=== PATIENT | female | born 1965 | race Caucasian/White ===

== ENCOUNTER 2016-05-02 09:16 | Emergency (ER) | payer MEDICARE, OTHER ==
--- NOTE | 2016-05-02 10:09 | ED ---
General Adult HPI - General Chief complaint: Anxiety Stated complaint: HTN,numbness in face Time Seen by Provider: 05/02/16 09:40 Source: patient, RN notes reviewed Mode of arrival: ambulatory Limitations: no limitations - History of Present Illness Initial comments: Patient is a 50-year-old female presents to the emergency room for evaluation of multiple complaints. Patient states he's been having with headaches, chest pain and facial numbness for the past week. Patient states she went to [facility] about a week ago they told her that it was because of her anxiety. Patient does admit she has a history of anxiety. Patient states symptoms are similar to anxiety, but the chest discomfort and headache is worrying her. Patient denies any weakness in her arms and legs. Patient states at times it feels like her heart is racing. Patient states she's having 7 out of 10 constant chest pain. Patient states she's also been having 7 out of 10 intermittent headaches throughout the week. Patient denies any history of headaches or migraines. Patient states she has been alternating Tylenol and Motrin with slight relief of symptoms. Patient also states that she has a history of high blood pressure. Patient states that she switched primary care physicians about a month ago and discontinued taking her blood pressure medication around that time as well. Patient states she was on 10 mg of lisinopril daily. Patient states she never got a refill on her blood pressure medication. Patient states that she has yet to follow-up with her new primary care provider. - Related Data Home Medications Medication Instructions Recorded Confirmed busPIRone HCL [Buspar] 30 mg PO BID 10/11/13 05/02/16 ARIPiprazole [Abilify] 15 mg PO HS 06/21/14 05/02/16 Venlafaxine HCl ER [Effexor XR] 150 mg PO DAILY 06/21/14 05/02/16 Mirtazapine 15 mg PO HS 11/06/14 05/02/16 Allergies Allergy/AdvReac Type Severity Reaction Status Date / Time benztropine mesylate Allergy Rash/Hives Verified 05/02/16 09:34 [From Art] Review of Systems ROS Statement: Those systems with pertinent positive or pertinent negative responses have been documented in the HPI. ROS Other: All systems not noted in ROS Statement are negative. Past Medical History Past Medical History: Asthma, Diabetes Mellitus, Hypertension History of Any Multi-Drug Resistant Organisms: None Reported Past Surgical History: Orthopedic Surgery Past Anesthesia/Blood Transfusion Reactions: No Reported Reaction Past Psychological History: Anxiety, Bipolar, Depression Smoking Status: Never smoker Past Alcohol Use History: None Reported Past Drug Use History: None Reported - Past Family History Mother Family Medical History: Diabetes Mellitus General Exam - General Exam Comments Initial Comments: Sitting in exam room in no acute distress. Limitations: no limitations General appearance: alert, in no apparent distress Head exam: Present: atraumatic, normocephalic, normal inspection Eye exam: Present: normal appearance, PERRL, EOMI Pupils: Present: normal accommodation ENT exam: Present: normal exam Neck exam: Present: normal inspection Respiratory exam: Present: normal lung sounds bilaterally. Absent: respiratory distress Cardiovascular Exam: Present: regular rate, normal rhythm, normal heart sounds Extremities exam: Present: normal inspection Back exam: Present: normal inspection Neurological exam: Present: alert, oriented X3, CN II-XII intact, normal gait Expanded Patient oriented to: Present: person, place, time Speech: Present: fluid speech Cranial nerves: EOM's Intact: Normal, Facial Sensation: Normal Sensory exam: Upper Extremity Light Touch: Normal, Lower Extremity Light Touch: Normal Motor strength exam: RUE: 5, LUE: 5, RLE: 5, LLE: 5 Eye Response: (4) open spontaneously Motor Response: (6) obeys commands Verbal Response: (5) oriented Psychiatric exam: Present: normal affect, anxious Skin exam: Present: warm, dry, intact, normal color. Absent: rash Course Vital Signs 05/02/16 05/02/16 05/02/16 09:23 09:57 11:54 Temperature 98.2 F 97.9 F Pulse Rate 84 89 Respiratory 18 16 Rate Blood Pressure 183/106 164/96 162/94 O2 Sat by Pulse 97 Oximetry 05/02/16 13:18 Temperature 98.1 F Pulse Rate 84 Respiratory 16 Rate Blood Pressure 164/100 O2 Sat by Pulse Oximetry EKG Findings - EKG Comments: EKG Findings:: Normal sinus rhythm with sinus arrhythmia, ventricular rate 86 bpm, CT interval 148 ms, QRS duration 84 ms, QT/QTC 352/421 ms Medical Decision Making - Medical Decision Making Patient is a 50-year-old female presents to the emergency room for multiple complaints. Chest x-ray shows no acute findings. Blood work showed no acute findings. Cardiac enzymes within normal limits. Patient also complaining continuing headache. Brain CT shows no acute findings. Patient was given Ativan with significant improvement of symptoms. Patient states that she will follow up with a primary care provider this week regarding anxiety and blood pressure. Patient states she understands everything that was discussed with her. Return parameters discussed. Case discussed with Dr. Borden. - Lab Data Result diagrams: 05/02/16 10:25 05/02/16 10:25 Lab Results 05/02/16 05/02/16 05/02/16 Range/Units 10:25 10:25 10:25 WBC 6.3 (3.8-10.6) k/uL RBC 4.14 (3.80-5.40) m/uL Hgb 12.8 (11.4-16.0) gm/dL Hct 38.1 (34.0-46.0) % MCV 92.1 (80.0-100.0) fL MCH 30.9 (25.0-35.0) pg MCHC 33.5 (31.0-37.0) g/dL RDW 13.5 (11.5-15.5) % Plt Count 342 (150-450) k/uL Neutrophils % 59 % Lymphocytes % 30 % Monocytes % 5 % Eosinophils % 3 % Basophils % 0 % Neutrophils # 3.8 (1.3-7.7) k/uL Lymphocytes # 1.9 (1.0-4.8) k/uL Monocytes # 0.3 (0-1.0) k/uL Eosinophils # 0.2 (0-0.7) k/uL Basophils # 0.0 (0-0.2) k/uL PT (9.0-12.0) sec INR (<1.1) APTT (22.0-30.0) sec D-Dimer (<0.60) mg/L FEU Sodium 142 (137-145) mmol/L Potassium 3.8 (3.5-5.1) mmol/L Chloride 105 (98-107) mmol/L Carbon Dioxide 27 (22-30) mmol/L Anion Gap 10 mmol/L BUN 10 (7-17) mg/dL Creatinine 0.72 (0.52-1.04) mg/dL Est GFR (MDRD) Af Amer >60 (>60 ml/min/1.73 sqM) Est GFR (MDRD) Non-Af >60 (>60 ml/min/1.73 sqM) Glucose 84 (74-99) mg/dL Calcium 9.1 (8.4-10.2) mg/dL Magnesium 1.8 (1.6-2.3) mg/dL Total Bilirubin 0.4 (0.2-1.3) mg/dL AST 26 (14-36) U/L ALT 48 (9-52) U/L Alkaline Phosphatase 92 (38-126) U/L Total Creatine Kinase 87 (30-135) U/L CK-MB (CK-2) 0.7 (0.0-2.4) ng/mL CK-MB (CK-2) Rel Index 0.8 Troponin I <0.012 (0.000-0.034) ng/mL Total Protein 7.2 (6.3-8.2) g/dL Albumin 4.2 (3.5-5.0) g/dL 05/02/16 Range/Units 10:25 WBC (3.8-10.6) k/uL RBC (3.80-5.40) m/uL Hgb (11.4-16.0) gm/dL Hct (34.0-46.0) % MCV (80.0-100.0) fL MCH (25.0-35.0) pg MCHC (31.0-37.0) g/dL RDW (11.5-15.5) % Plt Count (150-450) k/uL Neutrophils % % Lymphocytes % % Monocytes % % Eosinophils % % Basophils % % Neutrophils # (1.3-7.7) k/uL Lymphocytes # (1.0-4.8) k/uL Monocytes # (0-1.0) k/uL Eosinophils # (0-0.7) k/uL Basophils # (0-0.2) k/uL PT 9.7 (9.0-12.0) sec INR 0.9 (<1.1) APTT 24.0 (22.0-30.0) sec D-Dimer 0.26 (<0.60) mg/L FEU Sodium (137-145) mmol/L Potassium (3.5-5.1) mmol/L Chloride (98-107) mmol/L Carbon Dioxide (22-30) mmol/L Anion Gap mmol/L BUN (7-17) mg/dL Creatinine (0.52-1.04) mg/dL Est GFR (MDRD) Af Amer (>60 ml/min/1.73 sqM) Est GFR (MDRD) Non-Af (>60 ml/min/1.73 sqM) Glucose (74-99) mg/dL Calcium (8.4-10.2) mg/dL Magnesium (1.6-2.3) mg/dL Total Bilirubin (0.2-1.3) mg/dL AST (14-36) U/L ALT (9-52) U/L Alkaline Phosphatase (38-126) U/L Total Creatine Kinase (30-135) U/L CK-MB (CK-2) (0.0-2.4) ng/mL CK-MB (CK-2) Rel Index Troponin I (0.000-0.034) ng/mL Total Protein (6.3-8.2) g/dL Albumin (3.5-5.0) g/dL Disposition Clinical Impression: Anxiety, Headache Disposition: HOME SELF-CARE Condition: Good Instructions: Generalized Anxiety Disorder (ED), Acute Headache (ED) Additional Instructions: Please follow up with primary care provider in 24-48 hours. If any new symptom arises, symptoms worsen or fever develops, return to ER as soon as possible. Referrals: Tia Feliz MD [Primary Care Provider] - 1-2 days Time of Disposition: 13:06
[2016-05-02 10:53] LABS: INR 0.9 (<1.1); Prothrombin Time 9.7 sec (9.0-12.0)
[2016-05-02 10:57] LABS: ALT 48 U/L (9-52); AST 26 U/L (14-36); Alkaline Phosphatase 92 U/L (38-126); Anion Gap 10 mmol/L; Blood Urea Nitrogen 10 mg/dL (7-17); Calcium 9.1 mg/dL (8.4-10.2); Carbon Dioxide 27 mmol/L (22-30); Chloride 105 mmol/L (98-107); Glucose 84 mg/dL (74-99); Magnesium 1.8 mg/dL (1.6-2.3); Non-African American GFR(MDRD) >60 (>60 ml/min/1.73 sqM); Potassium 3.8 mmol/L (3.5-5.1); Sodium 142 mmol/L (137-145); Total Bilirubin 0.4 mg/dL (0.2-1.3); Total Protein 7.2 g/dL (6.3-8.2)
--- NOTE | 2016-05-02 11:01 | XR ---
EXAMINATION TYPE: XR chest 2V DATE OF EXAM: 05/02/2016 10:55 AM COMPARISON: 05/18/2015 INDICATION: Chest pain TECHNIQUE: Frontal and lateral views of the chest are obtained. FINDINGS: The heart size is normal. The pulmonary vasculature is normal. The lungs are clear. IMPRESSION: 1. No acute pulmonary process.
[2016-05-02 11:06] LABS: Creatine Kinase 87 U/L (30-135)
[2016-05-02 11:14] LABS: Basophils % (A) 0 %; CH 31.3; CHCM 34.1; Eosinophils # (A) 0.2 k/uL (0-0.7); Eosinophils % (A) 3 %; HCT 38.1 % (34.0-46.0); HDW 2.74; HGB 12.8 gm/dL (11.4-16.0); Luc # (Auto) 0.11; Luc % (Auto) 2; Lymphocytes # (A) 1.9 k/uL (1.0-4.8); Lymphocytes % (A) 30 %; MCH 30.9 pg (25.0-35.0); MCHC 33.5 g/dL (31.0-37.0); MCV 92.1 fL (80.0-100.0); Mean Platelet Volume 6.2; Monocytes # (A) 0.3 k/uL (0-1.0); Monocytes % (A) 5 %; Neutrophils # (A) 3.8 k/uL (1.3-7.7); Neutrophils % (A) 59 %; RBC 4.14 m/uL (3.80-5.40); RDW 13.5 % (11.5-15.5); WBC 6.3 k/uL (3.8-10.6); WBC (Perox) 6.58
[2016-05-02 11:18] LABS: Creatine Kinase MB 0.7 ng/mL (0.0-2.4); Troponin I <0.012 ng/mL (0.000-0.034)
[2016-05-02 11:55] VITALS: RESP 16
--- NOTE | 2016-05-02 12:20 | CT ---
EXAMINATION TYPE: CT brain wo con DATE OF EXAM: 05/02/2016 12:16 PM COMPARISON: 06/21/2014 HISTORY: Generalized facial numbness CT DLP: 1012.[address] of the brain was performed. The ventricles, basal cisterns and sulci overlying the cerebral convexities demonstrate mild enlargem ent. There is no evidence for intracranial hemorrhage or sulcal effacement. There is decreased attenuation about the periventricular white matter and deep white matter of both c erebral hemispheres, compatible with chronic small vessel ischemia. Differential diagnosis does inclu de demyelination. No mass effects are seen.No midline shift. Osseous calvarium is intact. If symptoms persist consider MRI. IMPRESSION: 1. Age related atrophic and chronic small vessel ischemic change without acute intracranial process s een at this time.
[2016-05-02] MEDS ORDERED: LORazepam 2 MG/ML SYRINGE IV STA (12:26)
[2016-05-02 13:19] VITALS: BP 164/100; PULSE 84; TEMP 98.1
== END 2016-05-02 13:41 | disposition home or self-care (01) ==
LOC: EC 09:16
DX: F41.9 Anxiety disorder, unspecified (principal); R51 Headache; R07.9 Chest pain, unspecified; Z79.899 Other long term (current) drug therapy; Z88.8 Allergy status to other drugs, medicaments and biological substances; F31.9 Bipolar disorder, unspecified
CPT/HCPCS: 36415; 93005; 85379; 80053; 82550; 82553; 83735; 84484; 85025; 85610; 85730; 71020; 70450; 96374; 99284; J2060

== ENCOUNTER → 2017-07-24 | Outpatient (CLI) | payer MEDICARE, OTHER ==
--- NOTE | 2017-07-24 10:17 | CT ---
EXAMINATION TYPE: CT chest w con DATE OF EXAM: 07/24/2017 COMPARISON: CTA chest July 23, 2011. HISTORY: Patient complains of pneumonia per patient and order. CT DLP: 892 mGycm. Automated Exposure Control for Dose Reduction was Utilized. TECHNIQUE: CT scan of the thorax is performed following with IV Contrast, patient injected with 100 mL of Isovue 300. FINDINGS: LUNGS: The lungs are grossly clear, there is no suspicious consolidation or focal groundglass opacity . Small amount of linear scarring or atelectasis in the bases near diaphragm on coronal images. No s uspicious nodule or mass is present. There is no pleural effusion or pneumothorax seen. The tracheob ronchial tree is patent. MEDIASTINUM: There are no greater than 1 cm hilar or mediastinal lymph nodes. No cardiomegaly or pe ricardial effusion is seen. OTHER: Liver is diffusely low dense consistent with fatty infiltration. A few tiny subcentimeter sple nules are seen along anterior aspect of the spleen. There is moderate multilevel spurring in the thor acic spine. IMPRESSION: No suspicious acute pulmonary process is evident.
== END | disposition home or self-care (01) ==
LOC: RADCTMAIN 08:26
PROVIDERS: ATTEND Internal Medicine Critical Care Medicine
DX: J18.9 Pneumonia, unspecified organism (principal)
CPT/HCPCS: 82565; 84520; 71260; 36415; Q9967

== ENCOUNTER → 2020-08-06 | Outpatient (CLI) | payer MEDICARE, OTHER ==
--- NOTE | 2020-08-07 14:59 | MM ---
Reason for exam: screening (asymptomatic). Last mammogram was performed 12 years and 8 months ago. History: Patient is postmenopausal and is nulliparous. Family history of breast cancer in aunt. Physical Findings: A clinical breast exam by your physician is recommended on an annual basis and results should be correlated with mammographic findings. MG 3D Screening Mammo W/Cad Bilateral CC, MLO, and XCCL view(s) were taken. Prior study comparison: December 04, 2019, mammogram, performed at [facility]. May 16, 2019, mammogram, performed at [facility]. There are scattered fibroglandular densities. Benign appearing bilateral calcifications. No significant changes when compared with prior studies. ASSESSMENT: Benign, BI-RAD 2 RECOMMENDATION: Routine screening mammogram of both breasts in 1 year.
== END | disposition home or self-care (01) ==
LOC: RADMAMWWP 08:46
PROVIDERS: ATTEND Internal Medicine
DX: Z12.31 Encounter for screening mammogram for malignant neoplasm of breast (principal); Z78.0 Asymptomatic menopausal state; Z80.3 Family history of malignant neoplasm of breast
CPT/HCPCS: 77063; 77067

== ENCOUNTER → 2020-08-18 | Outpatient (CLI) | payer MEDICARE, OTHER ==
--- NOTE | 2020-08-18 11:02 | US ---
EXAMINATION TYPE: US venous doppler duplex LE RT DATE OF EXAM: 08/18/2020 10:58 AM COMPARISON: NONE CLINICAL HISTORY: M79.661 pain in right lower leg R22.41 Rt lower li. Pt states right leg pain/ no kn own prior DVT SIDE PERFORMED: Right TECHNIQUE: The lower extremity deep venous system is examined utilizing real time linear array sonog meenakshi with graded compression, doppler sonography and color-flow sonography. VESSELS IMAGED: Common Femoral Vein Deep Femoral Vein Greater Saphenous Vein * Femoral Vein Popliteal Vein Small Saphenous Vein * Proximal Calf Veins (* superficial vessels) Right Leg: Negative for DVT Results called to Dr's office at time of exam IMPRESSION: Grayscale, color doppler, spectral doppler imaging performed of the deep veins of the lo wer extremities. There is normal flow, compressibility, vascular waveforms.
== END | disposition home or self-care (01) ==
LOC: RADUSWWP 10:38
PROVIDERS: ATTEND Internal Medicine
DX: M79.661 Pain in right lower leg (principal); R22.41 Localized swelling, mass and lump, right lower limb

== ENCOUNTER → 2022-10-04 | Outpatient (CLI) | payer MEDICARE, OTHER ==
--- NOTE | 2022-10-04 12:28 | FL ---
EXAMINATION TYPE: FL UGI w small bowel DATE OF EXAM: 10/04/2022 11:56 AM CLINICAL INDICATION:Female, 57 years old with history of R10.9 UNSPECIFIED ABDOMINAL PAIN; COMPARISON: None TECHNIQUE: The procedure was explained and patient history elicited. All patient questions were ans wered prior to start of procedure. A telecine operator radiograph of the abdomen was also reviewed. Multiple flu oroscopic spot images of the esophagus, stomach and duodenum were obtained following ingestion of liq uid barium and EZ-gas crystals. After the completion of the upper gastrointestinal examination, a de tailed small bowel examination was performed. The patient was asked to ingest additional liquid sarah um and incremental frontal abdominal radiographs were then taken until contrast was visualized in the cecum. Fluoroscopic time: 1.4 min Fluoroscopic images: None Radiographs taken: 238 DAP: 11.13 mGym2 FINDINGS: Upper GI examination: The telecine operator abdominal radiograph demonstrates a normal bowel gas pattern without dilated loops of small or large bowel. There is no evidence for organomegaly or pneumoperitoneum. No abnormal calcificati ons. The visualized osseous structures are intact. The esophagus appears unremarkable without evidence of focal stricture, ulceration or abnormal outpou tami. No hiatal hernia was visualized. Esophageal dysmotility noted with tertiary contractions. No evidence of gastroesophageal reflux was seen. The stomach and duodenum demonstrate a normal course a nd contour. There is no evidence of focal gastric or duodenal ulceration, stricture, or abnormal out pouching. Small bowel mucosal folds are felt to be within normal limits. Detailed small bowel examination: Contrast is seen extending from the duodenojejunal junction into the cecum after 75 minutes , which i s within the expected time period. The small bowel follows normal distribution and contour without a ny evidence of extraluminal or intraluminal irregularity. There is no displacement of bowel loops or extraluminal extravasation of contrast material. IMPRESSION: 1. Esophageal dysmotility and otherwise on upper gastrointestinal examination 2. Normal detailed small bowel examination.
== END | disposition home or self-care (01) ==
LOC: RADFLMAIN 08:54
PROVIDERS: ATTEND Internal Medicine Gastroenterology
DX: K22.4 Dyskinesia of esophagus (principal)
CPT/HCPCS: 74240; 74248

== ENCOUNTER 2022-12-12 14:53 | Emergency (ER) | payer MEDICARE, OTHER ==
[2022-12-12 15:02] VITALS: RESP 22
--- NOTE | 2022-12-12 15:42 | XR ---
EXAMINATION TYPE: XR chest 2V DATE OF EXAM: 12/12/2022 3:36 PM COMPARISON: Chest radiographs from 07/03/2017 TECHNIQUE: XR chest 2V Frontal and lateral views of the chest. CLINICAL INDICATION:Female, 57 years old with history of Difficulty breathing ; FINDINGS: Lungs/Pleura: There is no evidence of pleural effusion, focal consolidation, or pneumothorax. Pulmonary vascularity: Unremarkable. Heart/mediastinum: Cardiomediastinal silhouette is unremarkable. Musculoskeletal: No acute osseous pathology. IMPRESSION: No acute cardiopulmonary disease/process.
--- NOTE | 2022-12-12 15:56 | ED ---
General Adult HPI - General Chief complaint: Upper Respiratory Infection Stated complaint: SOB Time Seen by Provider: 12/12/22 15:05 Source: patient, RN notes reviewed, old records reviewed Mode of arrival: ambulatory Limitations: no limitations - History of Present Illness Initial comments: This is a 57-year-old female presents emergency department stating that she's had an upper after infection last couple days. Patient states she was here 2 days ago she had a cold test was negative. Patient states she continues to have a cough though no sputum production. Patient denies difficulty breathing shortness breath per patient denies any chest pain. Patient states she also has developed a little bit of a sore throat. Patient denies headache patient denies any numbness or weakness. Patient denies any lightheadedness. Patient denies back pain. Patient denies any abdominal pain. - Related Data Home Medications Medication Instructions Recorded Confirmed busPIRone HCL [Buspar] 30 mg PO BID 10/11/13 05/02/16 ARIPiprazole [Abilify] 15 mg PO HS 06/21/14 05/02/16 Venlafaxine HCl ER [Effexor XR] 150 mg PO DAILY 06/21/14 05/02/16 Mirtazapine 15 mg PO HS 11/06/14 05/02/16 Previous Rx's Medication Instructions Recorded Albuterol Inhaler [Ventolin Hfa 1 - 2 puff INHALATION Q6H PRN #1 12/10/22 Inhaler] each Allergies Allergy/AdvReac Type Severity Reaction Status Date / Time benztropine mesylate Allergy Rash/Hives Verified 12/12/22 15:02 [From Art] Review of Systems ROS Statement: Those systems with pertinent positive or pertinent negative responses have been documented in the HPI. ROS Other: All systems not noted in ROS Statement are negative. Past Medical History Past Medical History: Asthma, Diabetes Mellitus, Hypertension History of Any Multi-Drug Resistant Organisms: None Reported Past Surgical History: Orthopedic Surgery Past Anesthesia/Blood Transfusion Reactions: No Reported Reaction Past Psychological History: Anxiety, Bipolar, Depression Smoking Status: Never smoker Past Alcohol Use History: None Reported Past Drug Use History: None Reported - Past Family History Mother Family Medical History: Diabetes Mellitus General Exam - General Exam Comments Initial Comments: GENERAL: Patient is well-developed and well-nourished. Patient is nontoxic and well- hydrated and is in no acute distress. ENT: Neck is soft and supple. No significant lymphadenopathy is noted. Oropharynx is clear. Moist mucous membranes. Neck has full range of motion without eliciting any pain. EYES: The sclera were anicteric and conjunctiva were pink and moist. Extraocular movements were intact and pupils were equal round and reactive to light. Eyelids were unremarkable. PULMONARY: Unlabored respirations. Good breath sounds bilaterally. No audible rales rhonchi or wheezing was noted. CARDIOVASCULAR: There is a regular rate and rhythm without any murmurs gallops or rubs. ABDOMEN: Soft and nontender with normal bowel sounds. SKIN: Skin is clear with no lesions or rashes and otherwise unremarkable. NEUROLOGIC: Patient is alert and oriented x3. Cranial nerves II through XII are grossly intact. Motor and sensory are also intact. Normal speech, volume and content. Symmetrical smile. MUSCULOSKELETAL: Normal extremities with adequate strength and full range of motion. LYMPHATICS: No significant lymphadenopathy is noted PSYCHIATRIC: Normal psychiatric evaluation. Limitations: no limitations Course Vital Signs 12/12/22 14:59 Temperature 98.7 F Pulse Rate 117 H Respiratory 22 Rate Blood Pressure 126/77 O2 Sat by Pulse 99 Oximetry Medical Decision Making - Medical Decision Making Was pt. sent in by a medical professional or institution (, PA, BREWERY CELLAR WORKER, urgent care, hospital, or [facility]...) When possible be specific @ -No Did you speak to anyone other than the patient for history (EMS, parent, family, police, friend...)? What history was obtained from this source @ -No Did you review nursing and triage notes (agree or disagree)? Why? @ -I reviewed and agree with nursing and triage notes Were old charts reviewed (outside hosp., previous admission, EMS record, old EKG, old radiological studies, urgent care reports/EKG's, [facility] records)? Report findings @ -I reviewed prior charts in prior laboratory work Differential Diagnosis (chest pain, altered mental status, abdominal pain women, abdominal pain men, vaginal bleeding, weakness, fever, dyspnea, syncope, headache, dizziness, GI bleed, back pain, seizure, CVA, palpatations, mental health, musculoskeletal)? @ -Upper respiratory infection, influenza, COVID, RSV EKG interpreted by me (3pts min.). @ -As above X-rays interpreted by me (1pt min.). @ -She shows no acute abnormality CT interpreted by me (1pt min.). @ -None done U/S interpreted by me (1pt. min.). @ -None done What testing was considered but not performed or refused? (CT, X-rays, U/S, labs)? Why? @ -None What meds were considered but not given or refused? Why? @ -None Did you discuss the management of the patient with other professionals (owen sheppard i.e. , PA, BREWERY CELLAR WORKER, lab, RT, psych nurse, social services designee, chute puller, teacher, ground defence officer, caseworker)? Give summary @ -No Was smoking cessation discussed for >3mins.? @ -No Was critical care preformed (if so, how long)? @ -No Were there social determinants of health that impacted care today? How? (Homelessness, low income, unemployed, alcoholism, drug addiction, transportation, low edu. Level, literacy, decrease access to med. care, care home, rehab)? @ -No Was there de-escalation of care discussed even if they declined (Discuss DNR or withdrawal of care, Hospice)? DNR status @ -No What co-morbidities impacted this encounter? (DM, HTN, Smoking, COPD, CAD, Cancer, CVA, ARF, Chemo, Hep., AIDS, mental health diagnosis, sleep apnea, morbid obesity)? @ -None Was patient admitted / discharged? Hospital course, mention meds given and route, prescriptions, significant lab abnormalities, going to OR and other pertinent info. @ -Influenza COVID and RSV tests were all negative x-ray was negative patient's vitals were within normal limits. Undiagnosed new problem with uncertain prognosis? @ -No Drug Therapy requiring intensive monitoring for toxicity (Heparin, Nitro, Insulin, Cardizem)? @ -No Were any procedures done? @ -No Diagnosis/symptom? @ -Upper respiratory infection Acute, or Chronic, or Acute on Chronic? @ -Acute Uncomplicated (without systemic symptoms) or Complicated (systemic symptoms)? @ -Uncomplicated Side effects of treatment? @ -No Exacerbation, Progression, or Severe Exacerbation? @ -No Poses a threat to life or bodily function? How? (Chest pain, USA, VT, pneumonia, PE, COPD, DKA, ARF, appy, cholecystitis, CVA, Diverticulitis, Homicidal, Suicidal, threat to staff... and all critical care pts) @ -No - Lab Data Lab Results 12/12/22 Range/Units 15:34 Influenza Type A (PCR) Not Detected (Not Detectd) Influenza Type B (PCR) Not Detected (Not Detectd) RSV (PCR) Not Detected (Not Detectd) SARS-CoV-2 (PCR) Not Detected (Not Detectd) Disposition Clinical Impression: Upper respiratory tract infection Disposition: HOME SELF-CARE Condition: Good Instructions (If sedation given, give patient instructions): Upper Respiratory Infection (ED) Is patient prescribed a controlled substance at d/c from ED?: No Referrals: Tia Feliz MD [Primary Care Provider] - 1-2 days Time of Disposition: 15:55
[2022-12-12 17:17] VITALS: BP 122/70; PULSE 96; TEMP 98.6
== END 2022-12-12 17:16 | disposition home or self-care (01) ==
LOC: EC 14:53
DX: J06.9 Acute upper respiratory infection, unspecified (principal); E11.9 Type 2 diabetes mellitus without complications; I10 Essential (primary) hypertension; J45.909 Unspecified asthma, uncomplicated; F31.9 Bipolar disorder, unspecified; F41.9 Anxiety disorder, unspecified; Z20.822 Contact with and (suspected) exposure to COVID-19; Z79.899 Other long term (current) drug therapy; Z88.8 Allergy status to other drugs, medicaments and biological substances
CPT/HCPCS: 71046; 87636; 99285

== ENCOUNTER 2023-04-04 13:12 | Emergency (ER) | payer MEDICARE, OTHER ==
--- NOTE | 2023-04-04 13:21 | ED ---
Lower Extremity Injury HPI - General Source: patient, RN notes reviewed <Helen Bustamante - Last Filed: 04/04/23 13:21> - General Source: patient, RN notes reviewed Limitations: no limitations <Isra Quiñones - Last Filed: 04/04/23 18:14> - General Stated Complaint: left knee injury Time Seen by Provider: 04/04/23 13:21 - History of Present Illness Initial Comments: Patient is a 57-year-old female presented ER with chief complaint of left knee pain. Patient denies any known trauma. Patient states it is difficult to walk. Patient has no other complaints at this time. (Helen Bustamante) Patient is a pleasant 57-year-old female presenting to the emergency department with concerns with left knee pain. Onset of symptoms was around 3 days ago. Patient is able to ambulate. Patient does have increased discomfort with ambulating as well as doing stairs. No known trauma. No history of chronic knee problems. Discomfort is left anterior knee. No swelling. No fever. No rash. (Isra Quiñones) - Related Data Home Medications Medication Instructions Recorded Confirmed busPIRone HCL [Buspar] 30 mg PO BID 10/11/13 05/02/16 ARIPiprazole [Abilify] 15 mg PO HS 06/21/14 05/02/16 Venlafaxine HCl ER [Effexor XR] 150 mg PO DAILY 06/21/14 05/02/16 Mirtazapine 15 mg PO HS 11/06/14 05/02/16 Previous Rx's Medication Instructions Recorded Albuterol Inhaler [Ventolin Hfa 1 - 2 puff INHALATION Q6H PRN #1 12/10/22 Inhaler] each Ibuprofen [Motrin] 600 mg PO Q6HR PRN #20 tab 04/04/23 Allergies Allergy/AdvReac Type Severity Reaction Status Date / Time benztropine mesylate Allergy Rash/Hives Verified 04/04/23 14:24 [From Art] Review of Systems ROS Other: All systems not noted in ROS Statement are negative. <Helen Bustamante - Last Filed: 04/04/23 13:21> ROS Other: All systems not noted in ROS Statement are negative. Constitutional: Denies: fever Eyes: Denies: eye pain ENT: Denies: ear pain Respiratory: Denies: cough Cardiovascular: Denies: chest pain Endocrine: Denies: fatigue Musculoskeletal: Reports: as per HPI <Isra Quiñones - Last Filed: 04/04/23 18:14> ROS Statement: Those systems with pertinent positive or pertinent negative responses have been documented in the HPI. Past Medical History Past Medical History: Asthma, Diabetes Mellitus, Hypertension History of Any Multi-Drug Resistant Organisms: None Reported Past Surgical History: Orthopedic Surgery Past Anesthesia/Blood Transfusion Reactions: No Reported Reaction Past Psychological History: Anxiety, Bipolar, Depression Smoking Status: Never smoker Past Alcohol Use History: None Reported Past Drug Use History: None Reported - Past Family History Mother Family Medical History: Diabetes Mellitus <Helen Bustamante - Last Filed: 04/04/23 13:21> General Exam <Helen Bustamante - Last Filed: 04/04/23 13:21> Limitations: no limitations General appearance: alert, in no apparent distress Head exam: Present: normocephalic Eye exam: Present: normal appearance Neck exam: Present: normal inspection Respiratory exam: Present: normal lung sounds bilaterally Cardiovascular Exam: Present: regular rate, normal rhythm Expanded Peripheral pulses: 2+: Posterior Tibialis (L), Dorsalis Pedis (L) GI/Abdominal exam: Present: soft. Absent: tenderness Extremities exam: Present: tenderness (Left knee with mild tenderness, mostly in the region of the medial meniscus. No warmth.). Absent: calf tenderness Neurological exam: Present: alert Psychiatric exam: Present: normal affect, normal mood Skin exam: Present: normal color <Isra Quiñones - Last Filed: 04/04/23 18:14> - General Exam Comments Initial Comments: Visual Physical Exam Vital signs reviewed General: Well-appearing, nontoxic, no acute distress. Head: Normocephalic, atraumatic Eyes: PERRLA, EOMI ENT: Airway patent Chest: Nonlabored breathing Skin: No visual rash, normal skin tone Neuro: Alert and oriented 3 Musculoskeletal: No gross abnormalities (Helen Bustamante) Course Vital Signs 04/04/23 04/04/23 14:22 18:04 Temperature 98.1 F 97.1 F L Pulse Rate 95 87 Respiratory 18 13 Rate Blood Pressure 121/80 118/78 O2 Sat by Pulse 97 97 Oximetry Medical Decision Making <Helen Bustamante - Last Filed: 04/04/23 13:21> <Isra Quiñones - Last Filed: 04/04/23 18:14> - Medical Decision Making I performed the quick note portion of the exam. Electronically signed by Helen Bustamante PA-C (Helen Bustamante) Was pt. sent in by a medical professional or institution (RICKY Billingsley, TIRE AND TUBE REPAIRER, urgent care, hospital, or long-term...) When possible be specific @ -No Did you speak to anyone other than the patient for history (EMS, parent, family, police, friend...)? What history was obtained from this source @ -No Did you review nursing and triage notes (agree or disagree)? Why? @ -I reviewed and agree with nursing and triage notes Were old charts reviewed (outside hosp., previous admission, EMS record, old EKG, old radiological studies, urgent care reports/EKG's, long-term records)? Report findings @ -Previous right knee x-ray reviewed Differential Diagnosis (chest pain, altered mental status, abdominal pain women, abdominal pain men, vaginal bleeding, weakness, fever, dyspnea, syncope, headache, dizziness, GI bleed, back pain, seizure, CVA, palpatations, mental health, musculoskeletal)? @ -Differential Musculoskeletal Muscular strain, contusion, ligament sprain, fracture, arthritis, septic ar thritis, bursitis, cellulitis, muscle spasm, nerve compression, DVT, arterial occlusion, herpes zoster, electrolyte abnormality, tumor.... This is not meant to be in all inclusive list EKG interpreted by me (3pts min.). @ -As above X-rays interpreted by me (1pt min.). @ -Left knee x-ray does show some arthritic changes CT interpreted by me (1pt min.). @ -None done U/S interpreted by me (1pt. min.). @ -None done What testing was considered but not performed or refused? (CT, X-rays, U/S, labs)? Why? @ -None What meds were considered but not given or refused? Why? @ -None Did you discuss the management of the patient with other professionals (professionals i.e. RICKY Billingsley, TIRE AND TUBE REPAIRER, lab, RT, psych nurse, addiction social worker, lead caster helper, teacher, hazard mitigation officer, social work case manager)? Give summary @ -No Was smoking cessation discussed for >3mins.? @ -No Was critical care preformed (if so, how long)? @ -No Were there social determinants of health that impacted care today? How? (Homelessness, low income, unemployed, alcoholism, drug addiction, transportatio n, low edu. Level, literacy, decrease access to med. care, long-term, rehab)? @ -No Was there de-escalation of care discussed even if they declined (Discuss DNR or withdrawal of care, Hospice)? DNR status @ -No What co-morbidities impacted this encounter? (DM, HTN, Smoking, COPD, CAD, Cancer, CVA, ARF, Chemo, Hep., AIDS, mental health diagnosis, sleep apnea, morbid obesity)? @ -None Was patient admitted / discharged? Hospital course, mention meds given and route, prescriptions, significant lab abnormalities, going to OR and other pertinent info. @ -Patient is updated on results and need for follow-up. Patient will be given Toradol as well as ibuprofen 600 prescription and knee immobilizer. Recommended orthopedic follow-up. Undiagnosed new problem with uncertain prognosis? @ -No Drug Therapy requiring intensive monitoring for toxicity (Heparin, Nitro, Insulin, Cardizem)? @ -No Were any procedures done? @ -No Diagnosis/symptom? @ -Left knee arthralgia Acute, or Chronic, or Acute on Chronic? @ -Acute Uncomplicated (without systemic symptoms) or Complicated (systemic symptoms)? @ -default Side effects of treatment? @ -No Exacerbation, Progression, or Severe Exacerbation? @ -No Poses a threat to life or bodily function? How? (Chest pain, [place], [place], pneumonia, PE, COPD, DKA, ARF, appy, cholecystitis, CVA, Diverticulitis, Homicidal, Suicidal, threat to staff... and all critical care pts) @ -No (Isra Quiñones) Disposition <Helen Bustamante - Last Filed: 04/04/23 13:21> Is patient prescribed a controlled substance at d/c from ED?: No Time of Disposition: 18:13 <Isra Quiñones - Last Filed: 04/04/23 18:14> Clinical Impression: Arthralgia of left knee Disposition: HOME SELF-CARE Condition: Stable Instructions (If sedation given, give patient instructions): Arthralgia (ED), Knee Pain (ED) Additional Instructions: Please do follow-up with primary care physician and orthopedics in the next couple days for recheck. Return for increased pain, swelling, fever, redness, worsening or change in symptoms or any other concerns. Prescription has been sent to pharmacy. Prescriptions: Ibuprofen [Motrin] 600 mg PO Q6HR PRN #20 tab PRN Reason: Pain Referrals: Tia Feliz MD [Primary Care Provider] - 1-2 days Rhett Wisdom MD [STAFF PHYSICIAN] - 1-2 days
--- NOTE | 2023-04-04 15:03 | ED ---
Lower Extremity Injury HPI - General Stated Complaint: left knee injury Time Seen by Provider: 04/04/23 13:15 Source: patient, RN notes reviewed - Related Data Home Medications Medication Instructions Recorded Confirmed busPIRone HCL [Buspar] 30 mg PO BID 10/11/13 05/02/16 ARIPiprazole [Abilify] 15 mg PO HS 06/21/14 05/02/16 Venlafaxine HCl ER [Effexor XR] 150 mg PO DAILY 06/21/14 05/02/16 Mirtazapine 15 mg PO HS 11/06/14 05/02/16 Previous Rx's Medication Instructions Recorded Albuterol Inhaler [Ventolin Hfa 1 - 2 puff INHALATION Q6H PRN #1 12/10/22 Inhaler] each Allergies Allergy/AdvReac Type Severity Reaction Status Date / Time benztropine mesylate Allergy Rash/Hives Verified 12/12/22 15:02 [From Art] Review of Systems ROS Statement: Those systems with pertinent positive or pertinent negative responses have been documented in the HPI. ROS Other: All systems not noted in ROS Statement are negative. Past Medical History Past Medical History: Asthma, Diabetes Mellitus, Hypertension History of Any Multi-Drug Resistant Organisms: None Reported Past Surgical History: Orthopedic Surgery Past Anesthesia/Blood Transfusion Reactions: No Reported Reaction Past Psychological History: Anxiety, Bipolar, Depression Smoking Status: Never smoker Past Alcohol Use History: None Reported Past Drug Use History: None Reported - Past Family History Mother Family Medical History: Diabetes Mellitus Disposition Referrals: Tia Feliz MD [Primary Care Provider] - 1-2 days
--- NOTE | 2023-04-04 16:14 | XR ---
EXAMINATION TYPE: XR knee complete LT DATE OF EXAM: 04/04/2023 COMPARISON: None HISTORY: 57-year-old female left knee pain, no known injury TECHNIQUE: AP, oblique, and lateral views FINDINGS: There is degenerative spurring in the medial and patellofemoral compartments. There is a joint effusi on. Extensor mechanism appears intact. No acute fracture, subluxation or dislocation seen. IMPRESSION: Degenerative spurring especially within the medial and patellofemoral compartments. Trace knee joint effusion may be reactive. No acute osseous abnormality seen. If symptoms persist, consider MRI.
[2023-04-04] MEDS ORDERED: KETOROLAC 15 MG/ML 1 ML VIAL IM STA (18:08)
[2023-04-04 18:24] VITALS: BP 118/78; PULSE 87; RESP 13; TEMP 97.1
== END 2023-04-04 18:59 | disposition home or self-care (01) ==
LOC: EC 13:12
DX: M25.562 Pain in left knee (principal); E11.9 Type 2 diabetes mellitus without complications; I10 Essential (primary) hypertension; J45.909 Unspecified asthma, uncomplicated; F41.9 Anxiety disorder, unspecified; F31.9 Bipolar disorder, unspecified; Z88.8 Allergy status to other drugs, medicaments and biological substances; Z79.899 Other long term (current) drug therapy
CPT/HCPCS: 73562; 99284; 96372; J1885

== ENCOUNTER → 2023-04-17 | Outpatient (CLI) | payer MEDICARE, OTHER ==
--- NOTE | 2023-04-21 04:54 | MR ---
EXAMINATION TYPE: MR knee LT wo con DATE OF EXAM: 04/17/2023 COMPARISON: Left knee x-ray April 04, 2023 HISTORY: Left knee pain and swelling for a few weeks. TECHNIQUE: Multiplanar, multisequence images of the knee is performed without IV contrast. FINDINGS: MEDIAL MENISCUS: Horizontal increased signal posterior horn extends into central body but does not de finitively extend to articular surface. LATERAL MENISCUS: Increased signal posterior horn does not definitively extend to articular surface. CRUCIATE LIGAMENTS: The anterior and posterior cruciate ligaments are intact and unremarkable. COLLATERAL LIGAMENTS: The medial collateral ligament and lateral collateral ligament complex are inta ct. Fluid signal surrounds the medial collateral ligament. EXTENSOR MECHANISM: Visualized quadriceps and patellar tendons are intact. EFFUSION: No significant suprapatellar joint effusion. POPLITEAL CYST: Small leaking popliteal/you cyst. 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 BONE MARROW SIGNAL: Tiny foci of increased T2 signal along the anterior medial aspect of the medial t ibial plateau correspond to subtle sclerotic foci. This is nonspecific finding, osteopoikilosis is in differential. Heterogeneity consistent with red marrow reconversion is seen. OTHER: No additional significant abnormality is appreciated. IMPRESSION: 1. Fairly moderate tricompartment degenerative changes are present as detailed above. 2. Small leaking popliteal cyst. 3. Intrasubstance tear posterior horn into central body of the medial meniscus. 4. Intrasubstance tear posterior horn of lateral meniscus. 5. Mild MCL sprain injury.
== END | disposition home or self-care (01) ==
LOC: RADMRIMAIN 12:29
PROVIDERS: ATTEND Orthopaedic Surgery
DX: M17.12 Unilateral primary osteoarthritis, left knee (principal); M23.322 Other meniscus derangements, posterior horn of medial meniscus, left knee; M23.352 Other meniscus derangements, posterior horn of lateral meniscus, left knee; M23.632 Other spontaneous disruption of medial collateral ligament of left knee; M66.0 Rupture of popliteal cyst; M23.8X2 Other internal derangements of left knee

== ENCOUNTER 2023-08-25 13:47 | Emergency (ER) | payer MEDICARE, OTHER ==
[2023-08-25 14:22] VITALS: BP 114/98; RESP 16; TEMP 98.1
[2023-08-25 15:29] LABS: Basophils % (A) 1 %; Eosinophils # (A) 0.1 k/uL (0-0.7); Eosinophils % (A) 2 %; HCT 37.2 % (34.0-46.0); HGB 11.9 gm/dL (11.4-16.0); Lymphocytes # (A) 1.6 k/uL (1.0-4.8); Lymphocytes % (A) 30 %; MCH 29.7 pg (25.0-35.0); MCHC 31.9 g/dL (31.0-37.0); MCV 93.1 fL (80.0-100.0); Mean Platelet Volume 7.1; Monocytes # (A) 0.2 k/uL (0-1.0); Monocytes % (A) 5 %; Neutrophils # (A) 3.3 k/uL (1.3-7.7); Neutrophils % (A) 62 %; Platelet Count 329 k/uL (150-450); RDW 13.5 % (11.5-15.5); WBC 5.3 k/uL (3.8-10.6)
[2023-08-25] MEDS: LORazepam 1 MG TAB PO STA (15:29)
--- NOTE | 2023-08-25 15:30 | XR ---
EXAMINATION TYPE: XR chest 2V DATE OF EXAM: 08/25/2023 COMPARISON: 12/12/2022 HISTORY: 57-year-old female shortness of breath, difficulty breathing TECHNIQUE: PA and lateral views FINDINGS: Heart normal size. Aorta and pulmonary vasculature within normal limits. Hazy lower lung densities re lated to overlying soft tissue. No consolidation or pleural effusion. DISH in the mid thoracic spine. IMPRESSION: No acute cardiopulmonary process.
[2023-08-25 15:47] LABS: ALT 18 U/L (4-34); AST 23 U/L (14-36); African American GFR (CKD) >90 (>60 ml/min/1.73 sqM); Albumin 3.7 g/dL (3.5-5.0); Alkaline Phosphatase 102 U/L (38-126); Anion Gap 1 mmol/L; Blood Urea Nitrogen 19 mg/dL (7-17); Carbon Dioxide 29 mmol/L (22-30); Chloride 107 mmol/L (98-107); Glucose 88 mg/dL (74-99); Non-African American GFR(CKD) >90 (>60 ml/min/1.73 sqM); Potassium 4.1 mmol/L (3.5-5.1); Sodium 137 mmol/L (137-145); Total Bilirubin 0.4 mg/dL (0.2-1.3); Total Protein 6.3 g/dL (6.3-8.2)
--- NOTE | 2023-08-25 16:37 | ED ---
General Adult HPI - General Chief complaint: Anxiety Stated complaint: anxiety Time Seen by Provider: 08/25/23 14:15 Source: patient, EMS, RN notes reviewed, old records reviewed Mode of arrival: EMS Limitations: no limitations - History of Present Illness Initial comments: Patient is a 57-year-old female presents emergency department complaining of anxiety. States she has a history of anxiety. Is on an antianxiety medication but states it does not seem to be helping. States it seems to be getting worse lately. Occasionally feels like her asthma is flaring up but then her anxiety kicks in and then they feed off of each other. Currently denies any acute complaints other than some mild anxiety. Denies any chest pain or shortness of breath. Denies abdominal pain, nausea, vomiting. No fevers or chills or sick contacts. Presents for further evaluation at this time. Has not seen her therapist in a while. Has been compliant with all other medications. - Related Data Home Medications Medication Instructions Recorded Confirmed busPIRone HCL [Buspar] 30 mg PO BID 10/11/13 05/02/16 ARIPiprazole [Abilify] 15 mg PO HS 06/21/14 05/02/16 Venlafaxine HCl ER [Effexor XR] 150 mg PO DAILY 06/21/14 05/02/16 Mirtazapine 15 mg PO HS 11/06/14 05/02/16 Previous Rx's Medication Instructions Recorded Albuterol Inhaler [Ventolin Hfa 1 - 2 puff INHALATION Q6H PRN #1 12/10/22 Inhaler] each Ibuprofen [Motrin] 600 mg PO Q6HR PRN #20 tab 04/04/23 ALPRAZolam [Xanax] 0.25 mg PO TID PRN 3 Days #9 tab 08/25/23 Allergies Allergy/AdvReac Type Severity Reaction Status Date / Time benztropine mesylate Allergy Rash/Hives Verified 08/25/23 14:02 [From Art] Review of Systems ROS Statement: Those systems with pertinent positive or pertinent negative responses have been documented in the HPI. Review of Systems: CONST: Denies fever EYES: Denies blurry vision ENT: Denies nasal congestion C/V: Denies Chest pain RESP: Denies shortness of breath GI: Denies abdominal pain : Denies dysuria SKIN: Denies rash. MSK: Denies joint pain. NEURO: Denies headache ROS Other: All systems not noted in ROS Statement are negative. Past Medical History Past Medical History: Asthma, Diabetes Mellitus, Hypertension History of Any Multi-Drug Resistant Organisms: None Reported Past Surgical History: Orthopedic Surgery Past Anesthesia/Blood Transfusion Reactions: No Reported Reaction Past Psychological History: Anxiety, Bipolar, Depression Smoking Status: Never smoker Past Alcohol Use History: None Reported Past Drug Use History: None Reported - Past Family History Mother Family Medical History: Diabetes Mellitus General Exam - General Exam Comments Initial Comments: General: Appears in no acute distress. HEAD: Normal with no signs of head trauma. EYES: PERRLA, EOMI, conjunctiva normal, no discharge. ENT: Hearing grossly intact, normal oropharynx. RESPIRATORY: Clear breath sounds bilaterally. No wheezes, rales, or rhonchi. C/V: Regular rate and rhythm. S1 and S2 auscultated, no edema, peripheral pulses 2+ and intact throughout ABD: Abd is soft, nontender, nondistended EXT: Normal range of motion, no obvious deformity SKIN: No rashes or lesions observed on exposed skin. NEURO: Alert and oriented x 4. Cranial nerves II-XII intact. No focal sensory or strength deficits. Limitations: no limitations Course Vital Signs 08/25/23 08/25/23 13:58 17:28 Temperature 98.1 F Pulse Rate 106 H 96 Respiratory 16 16 Rate Blood Pressure 114/98 114/98 O2 Sat by Pulse 97 95 Oximetry Medical Decision Making - Medical Decision Making Was pt. sent in by a medical professional or institution (, PA, ODD SHOE EXAMINER, urgent care, hospital, or senior living...) When possible be specific @ -No Did you speak to anyone other than the patient for history (EMS, parent, family, police, friend...)? What history was obtained from this source @ -No Did you review nursing and triage notes (agree or disagree)? Why? @ -I reviewed and agree with nursing and triage notes Were old charts reviewed (outside hosp., previous admission, EMS record, old EKG, old radiological studies, urgent care reports/EKG's, senior living records)? Report findings @ -No old charts were reviewed Differential Diagnosis (chest pain, altered mental status, abdominal pain women, abdominal pain men, vaginal bleeding, weakness, fever, dyspnea, syncope, headache, dizziness, GI bleed, back pain, seizure, CVA, palpatations, mental health, musculoskeletal)? @ -Anxiety, asthma, electrolyte abnormality. This list is not all inclusive. EKG interpreted by me (3pts min.). @ -As above X-rays interpreted by me (1pt min.). @ -Chest x-ray reveals no obvious acute cardiopulmonary process CT interpreted by me (1pt min.). @ -None done U/S interpreted by me (1pt. min.). @ -None done What testing was considered but not performed or refused? (CT, X-rays, U/S, labs)? Why? @ -None What meds were considered but not given or refused? Why? @ -None Did you discuss the management of the patient with other professionals (professionals i.e. , PA, ODD SHOE EXAMINER, lab, RT, psych nurse, social worker school, card clothier, teacher, sergeant of officers, home health care case manager)? Give summary @ -No Was smoking cessation discussed for >3mins.? @ -No Was critical care preformed (if so, how long)? @ -No Were there social determinants of health that impacted care today? How? (Homelessness, low income, unemployed, alcoholism, drug addiction, transportation, low edu. Level, literacy, decrease access to med. care, [facility], rehab)? @ -No Was there de-escalation of care discussed even if they declined (Discuss DNR or withdrawal of care, Hospice)? DNR status @ -No What co-morbidities impacted this encounter? (DM, HTN, Smoking, COPD, CAD, Cancer, CVA, ARF, Chemo, Hep., AIDS, mental health diagnosis, sleep apnea, morbid obesity)? @ -None Was patient admitted / discharged? Hospital course, mention meds given and route, prescriptions, significant lab abnormalities, going to OR and other pertinent info. @ -Patient presents with what appears to be anxiety. We will obtain basic lab s, screening EKG and chest x-ray. Has a history of asthma but does not appear to be an active asthma exacerbation. Presents for further evaluation at this time. Vital signs are within acceptable limits. Given a dose of Ativan. She was in agreement this plan. EKG shows no signs of acute ischemia. Patient's laboratory studies are all within acceptable limits. Chest x-ray unremarkable. On reevaluation, patient is feeling improved. I discussed with her that she needs follow-up with her therapist. She will be given a 3-day prescription for Xanax in the meantime. She was in agreement this plan. Strict return precautions discussed. I will provide the patient with a prescription for Xanax. I instructed the patient to follow up with their PCP in the next 1-3 days.. I explained that the patient should return to the emergency department if they experience any worsening symptoms. Strict return precautions were discussed with the patient. The patient expressed understanding of these instructions. I answered all questions that the patient had. The patient was discharged home in good condition with their prescriptions and follow up information. Undiagnosed new problem with uncertain prognosis? @ -No Drug Therapy requiring intensive monitoring for toxicity (Heparin, Nitro, Insuli n, Cardizem)? @ -No Were any procedures done? @ -No Diagnosis/symptom? @ -Anxiety, panic attack Acute, or Chronic, or Acute on Chronic? @ -Acute Uncomplicated (without systemic symptoms) or Complicated (systemic symptoms)? @ -Complicated Side effects of treatment? @ -No Exacerbation, Progression, or Severe Exacerbation? @ -No Poses a threat to life or bodily function? How? (Chest pain, [place], [place], pneumonia, PE, COPD, DKA, ARF, appy, cholecystitis, CVA, Diverticulitis, Homicidal, Suicidal, threat to staff... and all critical care pts) @ -Unlikely - Lab Data Result diagrams: 08/25/23 15:22 08/25/23 15:22 Lab Results 08/25/23 08/25/23 Range/Units 15:22 15:22 WBC 5.3 (3.8-10.6) k/uL RBC 4.00 (3.80-5.40) m/uL Hgb 11.9 (11.4-16.0) gm/dL Hct 37.2 (34.0-46.0) % MCV 93.1 (80.0-100.0) fL MCH 29.7 (25.0-35.0) pg MCHC 31.9 (31.0-37.0) g/dL RDW 13.5 (11.5-15.5) % Plt Count 329 (150-450) k/uL MPV 7.1 Neutrophils % 62 % Lymphocytes % 30 % Monocytes % 5 % Eosinophils % 2 % Basophils % 1 % Neutrophils # 3.3 (1.3-7.7) k/uL Lymphocytes # 1.6 (1.0-4.8) k/uL Monocytes # 0.2 (0-1.0) k/uL Eosinophils # 0.1 (0-0.7) k/uL Basophils # 0.0 (0-0.2) k/uL Sodium 137 (137-145) mmol/L Potassium 4.1 (3.5-5.1) mmol/L Chloride 107 (98-107) mmol/L Carbon Dioxide 29 (22-30) mmol/L Anion Gap 1 mmol/L BUN 19 H (7-17) mg/dL Creatinine 0.74 (0.52-1.04) mg/dL Est GFR (CKD-EPI)AfAm >90 (>60 ml/min/1.73 sqM) Est GFR (CKD-EPI)NonAf >90 (>60 ml/min/1.73 sqM) Glucose 88 (74-99) mg/dL Calcium 9.0 (8.4-10.2) mg/dL Total Bilirubin 0.4 (0.2-1.3) mg/dL AST 23 (14-36) U/L ALT 18 (4-34) U/L Alkaline Phosphatase 102 (38-126) U/L Total Protein 6.3 (6.3-8.2) g/dL Albumin 3.7 (3.5-5.0) g/dL - EKG Data -: EKG Interpreted by Me EKG Comments: 12-lead Electrocardiogram Interpretation Note EKG was reviewed and interpreted by myself. 12-lead ECG performed at 1535 is interpreted by me as revealing normal sinus rhythm at a rate of 78 beats per minute. [place] is normal. [place] interval is 162 ms, QRS durations 90 ms, QTc is 401 ms.. There were no ST or T wave abnormalities to suggest myocardial ischemia or injury. R wave progression across the precordium was delayed. By my interpretation this EKG is non-diagnostic for acute ischemia. Disposition Clinical Impression: Acute anxiety, Panic attack Disposition: HOME SELF-CARE Condition: Good Instructions (If sedation given, give patient instructions): Generalized Anxiety Disorder (ED) Prescriptions: ALPRAZolam [Xanax] 0.25 mg PO TID PRN 3 Days #9 tab PRN Reason: Anxiety Is patient prescribed a controlled substance at d/c from ED?: No Referrals: Tia Feliz MD [Primary Care Provider] - 1-2 days Time of Disposition: 16:35
[2023-08-25 17:44] VITALS: PULSE 96
== END 2023-08-25 17:31 | disposition home or self-care (01) ==
LOC: EC 13:47
DX: F41.0 Panic disorder [episodic paroxysmal anxiety] (principal); F41.9 Anxiety disorder, unspecified; Z88.8 Allergy status to other drugs, medicaments and biological substances
CPT/HCPCS: 36415; 71046; 80053; 85025; 93005; 99284

== ENCOUNTER 2023-09-09 17:37 | Emergency (ER) | payer MEDICARE, OTHER ==
--- NOTE | 2023-09-09 18:12 | XR ---
EXAMINATION TYPE: XR ankle complete RT DATE OF EXAM: 09/09/2023 COMPARISON: None HISTORY: Fall, pain TECHNIQUE: 3 view right ankle FINDINGS: No acute fracture or dislocation evident. There is prominent soft tissue swelling over the lateral malleolus. Plantar and Achilles tendon calcaneal heel spurs are present. Follow up exams can be performed 7-10 days from acute trauma for continued pain. IMPRESSION: 1. No acute osseous abnormality right ankle. 2. Soft tissue swelling right lateral malleolus
--- NOTE | 2023-09-09 18:45 | XR ---
EXAMINATION TYPE: XR foot complete RT DATE OF EXAM: 09/09/2023 COMPARISON: None HISTORY: Right foot pain and ankle pain following rolling one day prior TECHNIQUE: 3 view right foot FINDINGS: No acute fracture or dislocation is evident. Joint spaces appear preserved. Plantar and Ach illes tendon calcaneal spurs are present. Follow-up studies can be performed 7-10 days from acute trauma for continued pain. IMPRESSION: 1. No acute osseous abnormality right foot
--- NOTE | 2023-09-09 19:02 | ED ---
Fall HPI - General Chief Complaint: Fall Stated Complaint: right foot injury Time Seen by Provider: 09/09/23 18:21 Source: patient, RN notes reviewed Mode of arrival: ambulatory - History of Present Illness Initial Comments: 57-year-old female presenting to the ED with chief complaint of right ankle pain. Patient reports she was standing up on the chair "adjusting something" wh en she lost her balance causing her to twist her right ankle. Reports that she also hit her right side of her head on a air conditioning unit. Denies blood thinner baby aspirin use. Denies LOC. Denies headache at this time. At this time only notes pain of the right foot and ankle. No preceding chest pain shortness of breath or dizziness. No other complaints at this time. - Related Data Home Medications Medication Instructions Recorded Confirmed busPIRone HCL [Buspar] 30 mg PO BID 10/11/13 05/02/16 ARIPiprazole [Abilify] 15 mg PO HS 06/21/14 05/02/16 Venlafaxine HCl ER [Effexor XR] 150 mg PO DAILY 06/21/14 05/02/16 Mirtazapine 15 mg PO HS 11/06/14 05/02/16 Previous Rx's Medication Instructions Recorded Albuterol Inhaler [Ventolin Hfa 1 - 2 puff INHALATION Q6H PRN #1 12/10/22 Inhaler] each Ibuprofen [Motrin] 600 mg PO Q6HR PRN #20 tab 04/04/23 ALPRAZolam [Xanax] 0.25 mg PO TID PRN 3 Days #9 tab 08/25/23 Acetaminophen Tab [Tylenol] 650 mg PO Q6H PRN #30 tab 09/09/23 Ibuprofen [Motrin] 600 mg PO Q8HR PRN #30 tab 09/09/23 Allergies Allergy/AdvReac Type Severity Reaction Status Date / Time benztropine mesylate Allergy Rash/Hives Verified 09/09/23 17:47 [From Art] Review of Systems ROS Statement: Those systems with pertinent positive or pertinent negative responses have been documented in the HPI. ROS Other: All systems not noted in ROS Statement are negative. Past Medical History Past Medical History: Asthma, Diabetes Mellitus, Hypertension History of Any Multi-Drug Resistant Organisms: None Reported Past Surgical History: Orthopedic Surgery Past Anesthesia/Blood Transfusion Reactions: No Reported Reaction Past Psychological History: Anxiety, Bipolar, Depression Smoking Status: Never smoker Past Alcohol Use History: None Reported Past Drug Use History: None Reported - Past Family History Mother Family Medical History: Diabetes Mellitus General Exam Limitations: no limitations General appearance: alert, in no apparent distress Head exam: Present: other (No sun signs or raccoon's eyes.) Neck exam: Present: normal inspection Respiratory exam: Present: normal lung sounds bilaterally Cardiovascular Exam: Present: regular rate GI/Abdominal exam: Present: soft Extremities exam: Present: other (Tenderness to palpation over the right lateral malleolus and right medial foot at the first MTP joint with some ecchymosis.) Back exam: Present: other (No midline cervical spinal tenderness to palpation.) Neurological exam: Present: alert, oriented X3 Skin exam: Present: warm, dry Course Vital Signs 09/09/23 17:45 Temperature 98.1 F Pulse Rate 95 Respiratory 118 H Rate Blood Pressure 144/81 O2 Sat by Pulse 92 L Oximetry Medical Decision Making - Medical Decision Making Was pt. sent in by a medical professional or institution (RICKY Billingsley, ADMINISTRATIVE SUPPORT MANAGER, urgent care, hospital, or longterm...) When possible be specific @ -No Did you speak to anyone other than the patient for history (EMS, parent, family, police, friend...)? What history was obtained from this source @ -No Did you review nursing and triage notes (agree or disagree)? Why? @ -I reviewed and agree with nursing and triage notes Were old charts reviewed (outside hosp., previous admission, EMS record, old EKG, old radiological studies, urgent care reports/EKG's, longterm records)? Report findings @ -No old charts were reviewed Differential Diagnosis (chest pain, altered mental status, abdominal pain women, abdominal pain men, vaginal bleeding, weakness, fever, dyspnea, syncope, headache, dizziness, GI bleed, back pain, seizure, CVA, palpatations, mental health, musculoskeletal)? @ -Differential Musculoskeletal Muscular strain, contusion, ligament sprain, fracture, arthritis, septic arthri tis, bursitis, cellulitis, muscle spasm, nerve compression, DVT, arterial occlusion, herpes zoster, electrolyte abnormality, tumor.... This is not meant to be in all inclusive list EKG interpreted by me (3pts min.). @ -None X-rays interpreted by me (1pt min.). @ -X-rays of the foot and ankle interpreted me which revealed no evidence of acute finding. CT interpreted by me (1pt min.). @ -None done U/S interpreted by me (1pt. min.). @ -None done What testing was considered but not performed or refused? (CT, X-rays, U/S, labs)? Why? @ -None What meds were considered but not given or refused? Why? @ -None Did you discuss the management of the patient with other professionals (professionals i.e. , PA, ADMINISTRATIVE SUPPORT MANAGER, lab, RT, psych nurse, oncology social work, packing machine inspector, teacher, founder and chief technical officer, case supervisor)? Give summary @ -No Was smoking cessation discussed for >3mins.? @ -No Was critical care preformed (if so, how long)? @ -No Were there social determinants of health that impacted care today? How? (Homelessness, low income, unemployed, alcoholism, drug addiction, transportation, low edu. Level, literacy, decrease access to med. care, long term, rehab)? @ -No Was there de-escalation of care discussed even if they declined (Discuss DNR or withdrawal of care, Hospice)? DNR status @ -No What co-morbidities impacted this encounter? (DM, HTN, Smoking, COPD, CAD, Cancer, CVA, ARF, Chemo, Hep., AIDS, mental health diagnosis, sleep apnea, morbid obesity)? @ -None Was patient admitted / discharged? Hospital course, mention meds given and route, prescriptions, significant lab abnormalities, going to OR and other pertinent info. @ -Discharge 57-year-old female presented to the ED with complaints of right foot and ankle pain after twisting it. No other injuries at this time. Imaging at this time reviewed which revealed no evidence of acute finding. Foot and ankle was wrapped and discharged home in stable condition with instructions to follow-up with her primary care provider. Discussed return precautions with patient who verbalized agreement. Undiagnosed new problem with uncertain prognosis? @ -No Drug Therapy requiring intensive monitoring for toxicity (Heparin, Nitro, Insulin, Cardizem)? @ -No Were any procedures done? @ -No Diagnosis/symptom? @ -Right foot/ankle pain Acute, or Chronic, or Acute on Chronic? @ -Acute Uncomplicated (without systemic symptoms) or Complicated (systemic symptoms)? @ -Uncomplicated Side effects of treatment? @ -No Exacerbation, Progression, or Severe Exacerbation? @ -No Poses a threat to life or bodily function? How? (Chest pain, [place], [place], pneumonia, PE, COPD, DKA, ARF, appy, cholecystitis, CVA, Diverticulitis, Homicidal, Suicidal, threat to staff... and all critical care pts) @ -No Disposition Clinical Impression: Ankle sprain Disposition: HOME SELF-CARE Condition: Good Instructions (If sedation given, give patient instructions): Ankle Sprain (ED), Foot Sprain (ED) Additional Instructions: Please return to the Emergency Department if symptoms worsen or any other concerns. Please follow-up with your primary care provider. Use [id number] medications as needed for pain. Prescriptions: Ibuprofen [Motrin] 600 mg PO Q8HR PRN #30 tab PRN Reason: Pain Acetaminophen Tab [Tylenol] 650 mg PO Q6H PRN #30 tab PRN Reason: Pain Is patient prescribed a controlled substance at d/c from ED?: No Referrals: Tia Feliz MD [Primary Care Provider] - 1-2 days Time of Disposition: 19:05
[2023-09-09] MEDS: ACET/COD 300 MG/30 MG STARTER PACK 6 TAB BTL PO STA (19:20)
[2023-09-09] MEDS: IBUPROFEN 600 MG STARTER PACK 4 TAB BTL PO STA (19:21)
[2023-09-09 19:48] VITALS: BP 110/69; PULSE 86; RESP 18; TEMP 98.2
== END 2023-09-09 19:27 | disposition home or self-care (01) ==
LOC: EC 17:37
DX: S93.401A Sprain of unspecified ligament of right ankle, initial encounter (principal); Z88.8 Allergy status to other drugs, medicaments and biological substances; X50.1XXA Overexertion from prolonged static or awkward postures, initial encounter
CPT/HCPCS: 99284

== ENCOUNTER 2023-09-17 15:54 | Emergency (ER) | payer MEDICARE, OTHER ==
[2023-09-17 16:00] VITALS: BP 146/77; PULSE 88; RESP 20; TEMP 98.5
--- NOTE | 2023-09-17 16:11 | ED ---
Lower Extremity Injury HPI - General Chief Complaint: Extremity Injury, Lower Stated Complaint: R Foot Pain Time Seen by Provider: 09/17/23 16:03 Source: patient Mode of arrival: ambulatory Limitations: no limitations - History of Present Illness Initial Comments: 57-year-old female presenting with chief complaint of right ankle pain. About a week ago the patient injured her right ankle and was diagnosed with an ankle sprain. She was seen by her orthopedist and was instructed to wear a boot and was provided with Ultram for pain. She states that the boot makes her ankle hurt more and the Ultram is not helping her pain. She states the Tylenol 3 or Superior tends to help more. She has had no new injury or trauma. No numbness or tingling. - Related Data Home Medications Medication Instructions Recorded Confirmed busPIRone HCL [Buspar] 30 mg PO BID 10/11/13 05/02/16 ARIPiprazole [Abilify] 15 mg PO HS 06/21/14 05/02/16 Venlafaxine HCl ER [Effexor XR] 150 mg PO DAILY 06/21/14 05/02/16 Mirtazapine 15 mg PO HS 11/06/14 05/02/16 Previous Rx's Medication Instructions Recorded Albuterol Inhaler [Ventolin Hfa 1 - 2 puff INHALATION Q6H PRN #1 12/10/22 Inhaler] each Ibuprofen [Motrin] 600 mg PO Q6HR PRN #20 tab 04/04/23 ALPRAZolam [Xanax] 0.25 mg PO TID PRN 3 Days #9 tab 08/25/23 Acetaminophen Tab [Tylenol] 650 mg PO Q6H PRN #30 tab 09/09/23 Ibuprofen [Motrin] 600 mg PO Q8HR PRN #30 tab 09/09/23 Allergies Allergy/AdvReac Type Severity Reaction Status Date / Time benztropine mesylate Allergy Rash/Hives Verified 09/17/23 16:00 [From Art] Review of Systems ROS Statement: Those systems with pertinent positive or pertinent negative responses have been documented in the HPI. ROS Other: All systems not noted in ROS Statement are negative. Past Medical History Past Medical History: Asthma, Diabetes Mellitus, Hypertension History of Any Multi-Drug Resistant Organisms: None Reported Past Surgical History: Orthopedic Surgery Past Anesthesia/Blood Transfusion Reactions: No Reported Reaction Past Psychological History: Anxiety, Bipolar, Depression Smoking Status: Never smoker Past Alcohol Use History: None Reported Past Drug Use History: None Reported - Past Family History Mother Family Medical History: Diabetes Mellitus General Exam Limitations: no limitations General appearance: alert, in no apparent distress Head exam: Present: atraumatic, normocephalic Eye exam: Present: normal appearance, EOMI Neck exam: Present: normal inspection. Absent: meningismus Respiratory exam: Absent: respiratory distress Cardiovascular Exam: Present: regular rate Right Ankle exam: Present: tenderness, swelling. Absent: full ROM Neurovascular tendon exam: Present: no vascular compromise Neurological exam: Present: alert, oriented X3 Psychiatric exam: Present: normal affect, normal mood Skin exam: Present: normal color Course Vital Signs 09/17/23 15:56 Temperature 98.5 F Pulse Rate 88 Respiratory 20 Rate Blood Pressure 146/77 O2 Sat by Pulse 98 Oximetry Medical Decision Making - Medical Decision Making Was pt. sent in by a medical professional or institution (, PA, ELECTRONIC TECHNICIAN, urgent care, hospital, or shelter...) When possible be specific @ -No Did you speak to anyone other than the patient for history (EMS, parent, family, police, friend...)? What history was obtained from this source @ -No Did you review nursing and triage notes (agree or disagree)? Why? @ -I reviewed and agree with nursing and triage notes Were old charts reviewed (outside hosp., previous admission, EMS record, old EKG, old radiological studies, urgent care reports/EKG's, shelter records)? Report findings @ -No old charts were reviewed Differential Diagnosis (chest pain, altered mental status, abdominal pain women, abdominal pain men, vaginal bleeding, weakness, fever, dyspnea, syncope, headache, dizziness, GI bleed, back pain, seizure, CVA, palpatations, mental health, musculoskeletal)? @ -Differential Musculoskeletal Muscular strain, contusion, ligament sprain, fracture, arthritis, septic arthritis, bursitis, cellulitis, muscle spasm, nerve compression, DVT, arterial occlusion, herpes zoster, electrolyte abnormality, tumor.... This is not meant to be in all inclusive list EKG interpreted by me (3pts min.). @ -As above X-rays interpreted by me (1pt min.). @ -None done CT interpreted by me (1pt min.). @ -None done U/S interpreted by me (1pt. min.). @ -None done What testing was considered but not performed or refused? (CT, X-rays, U/S, labs)? Why? @ -None What meds were considered but not given or refused? Why? @ -None Did you discuss the management of the patient with other professionals (professionals i.e. Dr., PA, ELECTRONIC TECHNICIAN, lab, RT, psych nurse, social worker assistant, cloth framer, teacher, correctional probation officer, pillowcase folder)? Give summary @ -No Was smoking cessation discussed for >3mins.? @ -No Was critical care preformed (if so, how long)? @ -No Were there social determinants of health that impacted care today? How? (Homelessness, low income, unemployed, alcoholism, drug addiction, transportation, low edu. Level, literacy, decrease access to med. care, fdc, rehab)? @ -No Was there de-escalation of care discussed even if they declined (Discuss DNR or withdrawal of care, Hospice)? DNR status @ -No What co-morbidities impacted this encounter? (DM, HTN, Smoking, COPD, CAD, Cancer, CVA, ARF, Chemo, Hep., AIDS, mental health diagnosis, sleep apnea, morbid obesity)? @ -None Was patient admitted / discharged? Hospital course, mention meds given and route, prescriptions, significant lab abnormalities, going to OR and other pertinent info. @ -57-year-old female presenting with chief complaint of ankle pain. She is neurovascularly intact. She injured her ankle about a week ago and has had no new injuries. She is following with an orthopedist. Requesting Tylenol 3. She is provided with a Tylenol 3 starter pack instructed to follow-up with her orthopedist. Discharged home. Follow-up with PCP. Report back to ER with any new or worsening symptoms. Discussed return parameters and answered all questi ons. Patient conveyed verbal understanding and agreed to the plan. I discussed this case in detail with my attending Dr. Leger Undiagnosed new problem with uncertain prognosis? @ -No Drug Therapy requiring intensive monitoring for toxicity (Heparin, Nitro, Insulin, Cardizem)? @ -No Were any procedures done? @ -No Diagnosis/symptom? @ -Ankle sprain Acute, or Chronic, or Acute on Chronic? @ -Acute Uncomplicated (without systemic symptoms) or Complicated (systemic symptoms)? @ -Uncomplicated Side effects of treatment? @ -No Exacerbation, Progression, or Severe Exacerbation? @ -No Poses a threat to life or bodily function? How? (Chest pain, [place], [place], pneumonia, PE, COPD, DKA, ARF, appy, cholecystitis, CVA, Diverticulitis, Homicidal, Suicidal, threat to staff... and all critical care pts) @ -No Disposition Clinical Impression: Ankle sprain Disposition: HOME SELF-CARE Condition: Good Instructions (If sedation given, give patient instructions): Ankle Sprain (ED) Additional Instructions: Follow-up with your orthopedist. Report back to ER with any new or worsening symptoms. Rest, ice, compress, elevate the ankle. Is patient prescribed a controlled substance at d/c from ED?: No Referrals: iTa Feliz MD [Primary Care Provider] - 1-2 days Time of Disposition: 16:11
[2023-09-17] MEDS: Acetaminophen-Codeine 300-30mg TAB PO STA (16:18)
[2023-09-17] MEDS: ACET/COD 300 MG/30 MG STARTER PACK 6 TAB BTL PO STA (16:18)
== END 2023-09-17 16:22 | disposition home or self-care (01) ==
LOC: EC 15:54
DX: S93.401A Sprain of unspecified ligament of right ankle, initial encounter (principal); Z88.1 Allergy status to other antibiotic agents; X50.1XXA Overexertion from prolonged static or awkward postures, initial encounter
CPT/HCPCS: 99283

== ENCOUNTER 2023-11-18 17:29 | Emergency (ER) | payer MEDICARE, OTHER ==
[2023-11-18] MEDS ORDERED: IBUPROFEN 600 MG STARTER PACK 4 TAB BTL ONE (17:58)
[2023-11-18] MEDS ORDERED: traMADol 50 MG STARTER PACK 3 TAB BTL ONE (17:58)
== END 2023-11-18 18:17 | disposition home or self-care (01) ==
LOC: EC 17:29
CPT/HCPCS: 99282

== ENCOUNTER 2024-01-29 11:44 | Emergency (ER) | payer MEDICARE, OTHER ==
--- NOTE | 2024-01-29 12:07 | ED ---
ENT HPI - General Source: patient, RN notes reviewed Mode of arrival: ambulatory Limitations: no limitations <Macey Morales - Last Filed: 01/29/24 12:06> <Jose Mireles - Last Filed: 01/29/24 14:48> - General Chief complaint: ENT Stated complaint: Sore throat Time Seen by Provider: 01/29/24 12:01 - History of Present Illness Initial comments: Quick [id number] female presents emerged part chief complaint of sore throat congestion, mild cough over the past 3 to 4 days. States that she has been feeling nauseous as well. Endorses chills with no reported fevers. Has a history of asthma however does not use any inhalers. (Macey Morales) Dictation was produced using [employer] dictation software. please excuse any grammatical, word or spelling errors. Chief Complaint: 58-year-old female with sore throat and ear pain History of Present Illness: Patient is 58-year-old female presents emergency department with couple days of sore throat ear pain. Denies any cough. No fever, chills or night sweats. She has had some sick contacts however nobody with known COVID. The ROS documented in this emergency department record has been reviewed and confirmed by me. Those systems with pertinent positive or negative responses have been documented in the HPI. All other systems are other negative and/or noncontributory. (Jose Mireles) - Related Data Home Medications Medication Instructions Recorded Confirmed busPIRone HCL [Buspar] 30 mg PO BID 10/11/13 05/02/16 ARIPiprazole [Abilify] 15 mg PO HS 06/21/14 05/02/16 Venlafaxine HCl ER [Effexor XR] 150 mg PO DAILY 06/21/14 05/02/16 Mirtazapine 15 mg PO HS 11/06/14 05/02/16 Previous Rx's Medication Instructions Recorded Albuterol Inhaler [Ventolin Hfa 1 - 2 puff INHALATION Q6H PRN #1 12/10/22 Inhaler] each Ibuprofen [Motrin] 600 mg PO Q6HR PRN #20 tab 04/04/23 ALPRAZolam [Xanax] 0.25 mg PO TID PRN 3 Days #9 tab 08/25/23 Acetaminophen Tab [Tylenol] 650 mg PO Q6H PRN #30 tab 09/09/23 Ibuprofen [Motrin] 600 mg PO Q8HR PRN #30 tab 09/09/23 Allergies Allergy/AdvReac Type Severity Reaction Status Date / Time benztropine mesylate Allergy Rash/Hives Verified 01/29/24 11:52 [facility] Review of Systems ROS Other: All systems not noted in ROS Statement are negative. <Macey Morales - Last Filed: 01/29/24 12:06> ROS Other: All systems not noted in ROS Statement are negative. <Jose Mireles - Last Filed: 01/29/24 14:48> ROS Statement: Those systems with pertinent positive or pertinent negative responses have been documented in the HPI. Past Medical History Past Medical History: Asthma, Diabetes Mellitus, Hypertension History of Any Multi-Drug Resistant Organisms: None Reported Past Surgical History: Orthopedic Surgery Past Anesthesia/Blood Transfusion Reactions: No Reported Reaction Past Psychological History: Anxiety, Bipolar, Depression Smoking Status: Never smoker Past Alcohol Use History: None Reported Past Drug Use History: None Reported - Past Family History Mother Family Medical History: Diabetes Mellitus <Macey Morales - Last Filed: 01/29/24 12:06> General Exam Limitations: no limitations <Macey Morales - Last Filed: 01/29/24 12:06> <Jose Mireles - Last Filed: 01/29/24 14:48> - General Exam Comments Initial Comments: Visual Physical Exam Vital signs reviewed General: Well-appearing, nontoxic, no acute distress. Head: Normocephalic, atraumatic Eyes: PERRLA, EOMI ENT: Airway patent Chest: Nonlabored breathing Skin: No visual rash, normal skin tone Neuro: Alert and oriented 3 Musculoskeletal: No gross abnormalities (Macey Morales) General: Well-appearing, nontoxic, no acute distress. Head: Normocephalic, atraumatic Eyes: PERRLA, EOMI ENT: Airway patent, mild erythema to the posterior oropharynx, bilateral TMs clear Chest: Nonlabored breathing Skin: No visual rash, normal skin tone Neuro: Alert and oriented 3 Musculoskeletal: No gross abnormalities (Bayudan,Jose D) Course Vital Signs 01/29/24 11:50 Temperature 98.3 F Pulse Rate 89 Respiratory 16 Rate Blood Pressure 149/97 O2 Sat by Pulse 97 Oximetry Medical Decision Making <Macey Morales - Last Filed: 01/29/24 12:06> <Jose Mireles - Last Filed: 01/29/24 14:48> - Medical Decision Making I completed the quick note portion of this chart signed Macey Morales PA-C (Macey Morales) Was pt. sent in by a medical professional or institution (RICKY Billingsley, PINION AND WHEEL TRUER, urgent care, hospital, or [facility]...) When possible be specific @ -No Did you speak to anyone other than the patient for history (EMS, parent, family, police, friend...)? What history was obtained from this source @ -No Did you review nursing and triage notes (agree or disagree)? Why? @ -I reviewed and agree with nursing and triage notes Were old charts reviewed (outside hosp., previous admission, EMS record, old EKG, old radiological studies, urgent care reports/EKG's, [facility] records)? Report findings @ -No old charts were reviewed Differential Diagnosis (chest pain, altered mental status, abdominal pain women, abdominal pain men, vaginal bleeding, musculoskeletal, weakness, fever, dyspnea, syncope, headache, dizziness, GI bleed, back pain, seizure, CVA, palpatations, mental health)? @ -COVID, strep pharyngitis, gonorrheal pharyngitis EKG interpreted by me (3pts min.). @ -None done X-rays interpreted by me (1pt min.). @ -None done CT interpreted by me (1pt min.). @ -None done U/S interpreted by me (1pt. min.). @ -None done What testing was considered but not performed or refused? (CT, X-rays, U/S, labs)? Why? @ -None What meds were considered but not given or refused? Why? @ -None Was smoking cessation discussed for >3mins.? @ -No Were there social determinants of health that impacted care today? How? (Homelessness, low income, unemployed, alcoholism, drug addiction, transportation, low edu. Level, literacy, decrease access to med. care, penitentiary, rehab)? @ -No Was there de-escalation of care discussed even if they declined (Discuss DNR or withdrawal of care, Hospice)? DNR status @ -No What co-morbidities impacted this encounter? (DM, HTN, Smoking, COPD, CAD, Cancer, CVA, ARF, Chemo, Hep., AIDS, mental health diagnosis, sleep apnea, morbid obesity)? @ -None Was patient admitted / discharged? Hospital course, mention meds given and route, prescriptions, significant lab abnormalities, going to OR and other pertinent info. @ -58-year-old female presents to the emergency department with pharyngitis symptoms. Vital signs upon arrival are within acceptable limits. Swabs are negative. Strep test negative. Viral testing negative. No indication for antibiotics. Patient be discharged Did you discuss the management of the patient with other professionals (professionals i.e. , PA, PINION AND WHEEL TRUER, lab, RT, psych nurse, geriatric social worker, receiving associate store, teacher, chief fundraising officer, geriatric case manager)? Give summary @ -No Was critical care preformed (if so, how long)? @ -No Undiagnosed new problem with uncertain prognosis? @ -No Drug Therapy requiring intensive monitoring for toxicity (Heparin, Nitro, Insulin, Cardizem)? @ -No Were any procedures done? @ -No Diagnosis/symptom? Acute, or Chronic, or Acute on Chronic? Uncomplicated (without systemic symptoms) or Complicated (systemic symptoms)? @ -Pharyngitis, viral Side effects of treatment? @ -No Exacerbation, Progression, or Severe Exacerbation? @ -No Poses a threat to life or bodily function? How? (Chest pain, [place], [place], pneumonia, PE, COPD, DKA, ARF, appy, cholecystitis, CVA, Diverticulitis, Homicidal, Suicidal, threat to staff... and all critical care pts) @ -No (Jose Mireles) - Lab Data Lab Results 01/29/24 01/29/24 Range/Units 13:45 13:45 Influenza Type A (PCR) Not Detected (Not Detectd) Influenza Type B (PCR) Not Detected (Not Detectd) RSV (PCR) Not Detected (Not Detectd) SARS-CoV-2 (PCR) Not Detected (Not Detectd) Group A Strep (PCR) NOT DETECTED (Not Detectd) Disposition <Macey Morales - Last Filed: 01/29/24 12:06> Is patient prescribed a controlled substance at d/c from ED?: No Time of Disposition: 14:46 <Jose Mireles - Last Filed: 01/29/24 14:48> Clinical Impression: Pharyngitis Disposition: HOME SELF-CARE Condition: Good Instructions (If sedation given, give patient instructions): Pharyngitis (ED) Referrals: Tia Feliz MD [Primary Care Provider] - 1-2 days
[2024-01-29] MEDS: dexAMETHasone 4 MG TAB PO STA (15:12)
[2024-01-29 15:15] VITALS: BP 125/93; PULSE 82; RESP 18; TEMP 98.1
== END 2024-01-29 15:30 | disposition home or self-care (01) ==
LOC: EC 11:44
CPT/HCPCS: 87636; 87651; 99282

== ENCOUNTER 2024-05-01 14:30 | Emergency (ER) | payer MEDICARE, OTHER ==
--- NOTE | 2024-05-01 15:37 | ED ---
Lower Extremity Injury HPI - General Chief Complaint: Extremity Injury, Lower Stated Complaint: R leg pain Time Seen by Provider: 05/01/24 15:34 Source: patient, RN notes reviewed Mode of arrival: ambulatory Limitations: no limitations - History of Present Illness Initial Comments: 58-year-old female presenting for right lower leg injury. States earlier today she was walking and felt a pop in her calf. Since then, she has had difficulty ambulating due to pain. Reports pain is worse with both dorsiflexion and plantarflexion. Also reports her right calf seems much more swollen than usual. Denies blood thinners. - Related Data Home Medications Medication Instructions Recorded Confirmed busPIRone HCL [Buspar] 30 mg PO BID 10/11/13 01/29/24 Venlafaxine HCl ER [Effexor XR] 150 mg PO DAILY 06/21/14 01/29/24 Albuterol Inhaler [Ventolin Hfa 1 - 2 puff INHALATION RT-Q6H PRN 01/29/24 01/29/24 Inhaler] Docusate Sodium [Dok] 100 mg PO DAILY 01/29/24 01/29/24 Ibuprofen [Motrin] 800 mg PO Q8H PRN 01/29/24 01/29/24 Lubiprostone [Amitiza] 24 mcg PO BID 01/29/24 01/29/24 Naproxen [Naprosyn] 500 mg PO BID PRN 01/29/24 01/29/24 Pioglitazone [Actos] 30 mg PO DAILY 01/29/24 01/29/24 QUEtiapine [SEROquel] 200 mg PO HS 01/29/24 01/29/24 Venlafaxine HCl [Effexor XR] 75 mg PO DAILY 01/29/24 01/29/24 lamoTRIgine [LaMICtal] 200 mg PO DAILY 01/29/24 01/29/24 lisinopriL [Zestril] 20 mg PO DAILY 01/29/24 01/29/24 metFORMIN HCL [metFORMIN HCL ER] 750 mg PO DAILY 01/29/24 01/29/24 traMADol HCL 50 mg PO Q6H PRN 01/29/24 01/29/24 Previous Rx's Medication Instructions Recorded Cyclobenzaprine [Flexeril] 10 mg PO TID PRN #15 tab 05/01/24 Naproxen [Naprosyn] 500 mg PO Q12H PRN #30 tab 05/01/24 Allergies Allergy/AdvReac Type Severity Reaction Status Date / Time benztropine mesylate Allergy Rash/Hives Verified 01/29/24 14:46 [From Art] Review of Systems ROS Statement: Those systems with pertinent positive or pertinent negative responses have been documented in the HPI. ROS Other: All systems not noted in ROS Statement are negative. Past Medical History Past Medical History: Asthma, Diabetes Mellitus, Hyperlipidemia, Hypertension History of Any Multi-Drug Resistant Organisms: None Reported Past Surgical History: Orthopedic Surgery Past Anesthesia/Blood Transfusion Reactions: No Reported Reaction Past Psychological History: Anxiety, Bipolar, Depression Smoking Status: Never smoker Past Alcohol Use History: None Reported Past Drug Use History: None Reported - Past Family History Mother Family Medical History: Diabetes Mellitus General Exam Limitations: no limitations General appearance: alert, in no apparent distress Head exam: Present: atraumatic, normocephalic, normal inspection Right Knee exam: Present: normal inspection, full ROM. Absent: tenderness, swelling Lower Leg exam: Present: normal inspection (No overlying erythema or skin changes), full ROM, tenderness (Diffuse tenderness over anterior and posterior aspect of right lower leg). Absent: swelling, deformity, erythema, palpable cord, Homans' sign Ankle exam: Present: normal inspection, full ROM. Absent: tenderness, swelling Foot/Toe exam: Present: normal inspection, full ROM. Absent: tenderness, swelling Neurovascular tendon exam: Present: no vascular compromise. Absent: pulse deficit, abnormal cap refill, sensory deficit Neurological exam: Present: alert, oriented X3 Psychiatric exam: Present: normal affect, normal mood Skin exam: Present: warm, dry, intact, normal color. Absent: rash Course Vital Signs 05/01/24 14:43 Temperature 98.6 F Pulse Rate 81 Respiratory 16 Rate Blood Pressure 145/76 O2 Sat by Pulse 98 Oximetry Medical Decision Making - Medical Decision Making Was pt. sent in by a medical professional or institution (, PA, NETWORK DESIGNER, urgent care, hospital, or alf...) When possible be specific @ -No Did you speak to anyone other than the patient for history (EMS, parent, family, police, friend...)? What history was obtained from this source @ -No Did you review nursing and triage notes (agree or disagree)? Why? @ -I reviewed and agree with nursing and triage notes Were old charts reviewed (outside hosp., previous admission, EMS record, old EKG, old radiological studies, urgent care reports/EKG's, alf records)? Report findings @ -No old charts were reviewed Differential Diagnosis (chest pain, altered mental status, abdominal pain women, abdominal pain men, vaginal bleeding, weakness, fever, dyspnea, syncope, headac he, dizziness, GI bleed, back pain, seizure, CVA, palpatations, mental health, musculoskeletal)? @ -Differential Musculoskeletal Muscular strain, contusion, ligament sprain, fracture, arthritis, septic arthritis, bursitis, cellulitis, muscle spasm, nerve compression, DVT, arterial occlusion, herpes zoster, electrolyte abnormality, tumor.... This is not meant to be in all inclusive list EKG interpreted by me (3pts min.). @ -None X-rays interpreted by me (1pt min.). @ -X-ray right tib-fib no acute process CT interpreted by me (1pt min.). @ -None done U/S interpreted by me (1pt. min.). @ -Ultrasound right lower extremity negative for DVT or acute process What testing was considered but not performed or refused? (CT, X-rays, U/S, labs)? Why? @ -None What meds were considered but not given or refused? Why? @ -None Did you discuss the management of the patient with other professionals (professionals i.e. , PA, NETWORK DESIGNER, lab, RT, psych nurse, social media content manager, hasher machine operator, teacher, property and supply officer, case technician)? Give summary @ -No Was smoking cessation discussed for >3mins.? @ -No Was critical care preformed (if so, how long)? @ -No Were there social determinants of health that impacted care today? How? (Homelessness, low income, unemployed, alcoholism, drug addiction, transportation, low edu. Level, literacy, decrease access to med. care, correction, rehab)? @ -No Was there de-escalation of care discussed even if they declined (Discuss DNR or withdrawal of care, Hospice)? DNR status @ -No What co-morbidities impacted this encounter? (DM, HTN, Smoking, COPD, CAD, Cancer, CVA, ARF, Chemo, Hep., AIDS, mental health diagnosis, sleep apnea, morbid obesity)? @ -None Was patient admitted / discharged? Hospital course, mention meds given and route, prescriptions, significant lab abnormalities, going to OR and other pertinent info. @ -Discharge. This is a 58-year-old female presenting for right lower leg injury. [place] a pop in her right calf as she was walking earlier today. She is able to ambulate. Full range of motion. Neurovascularly intact. No sign of bacterial infection. Patient is provided with analgesics for supportive care. X-ray right tib-fib no acute process. Ultrasound right lower extremity negative for DVT or acute process. Discussed findings with patient. I suspect patient's symptoms are due to ruptured Johnson's cyst. Supportive care discussed. Appropriate return precautions and follow-up care discussed. Prescription for Toradol and Flexeril sent for supportive care. Case was discussed with my ED Attending Dr. Frances. Undiagnosed new problem with uncertain prognosis? @ -No Drug Therapy requiring intensive monitoring for toxicity (Heparin, Nitro, Insulin, Cardizem)? @ -No Were any procedures done? @ -No Diagnosis/symptom? @ -Ruptured Johnson's cyst Acute, or Chronic, or Acute on Chronic? @ -Acute Uncomplicated (without systemic symptoms) or Complicated (systemic symptoms)? @ -Uncomplicated Side effects of treatment? @ -No Exacerbation, Progression, or Severe Exacerbation? @ -No Poses a threat to life or bodily function? How? (Chest pain, [place], [place], pneumonia, PE, COPD, DKA, ARF, appy, cholecystitis, CVA, Diverticulitis, Homicidal, Suicidal, threat to staff... and all critical care pts) @ -No Disposition Clinical Impression: Johnson's cyst, ruptured Disposition: HOME SELF-CARE Condition: Stable Additional Instructions: Take naproxen and Flexeril as needed for pain. Follow-up with PCP as discussed. Please return to the Emergency Department if symptoms worsen or any other concerns. Prescriptions: Cyclobenzaprine [Flexeril] 10 mg PO TID PRN #15 tab PRN Reason: Muscle Spasm Naproxen [Naprosyn] 500 mg PO Q12H PRN #30 tab PRN Reason: Pain Is patient prescribed a controlled substance at d/c from ED?: No Referrals: Tia Feliz MD [Primary Care Provider] - 1-2 days Time of Disposition: 18:07
[2024-05-01] MEDS: ORPHENADRINE 30 MG/ML 2 ML VIAL IM STA (15:51)
[2024-05-01] MEDS: KETOROLAC 15 MG/ML 1 ML VIAL IM STA (15:51)
--- NOTE | 2024-05-01 16:14 | XR ---
EXAMINATION TYPE: XR tibia fibula RT DATE OF EXAM: 05/01/2024 4:02 PM COMPARISON: None CLINICAL INDICATION: Female, 58 years old with history of right lower leg injury; PHH, pain TECHNIQUE: XR tibia fibula RT; examined in AP and lateral projections. FINDINGS: No evidence of any acute osseous pathology, joint dislocation, or soft tissue swelling is n oted. No radiopaque foreign body. No evidence for fracture. No significant soft tissue swelling. Mild degen eration changes of the knee with osteophyte formation and tibial plateau and patella. IMPRESSION: No evidence of acute fracture. [facility], , 05/01/2024 4:12 PM
--- NOTE | 2024-05-01 17:52 | US ---
EXAMINATION TYPE: US venous doppler duplex LE RT DATE OF EXAM: 05/01/2024 4:32 PM COMPARISON: US 2020 CLINICAL INDICATION: Female, 58 years old with history of pain; Patient states right leg pain for 1 w [place]. States it feels like arthritis. No hx dvt. Not on thinners, Pain TECHNIQUE: The lower extremity deep venous system is examined utilizing real time linear array sonog meenakshi with graded compression, color doppler sonography, and spectral doppler. SIDE PERFORMED: Right FINDINGS: VESSELS IMAGED: Common Femoral Vein Deep Femoral Vein Greater Saphenous Vein * Femoral Vein Popliteal Vein Small Saphenous Vein * Proximal Calf Veins (* superficial vessels) Slightly limited due to body habitus Right Leg: Appears negative for DVT, Color Doppler imaging shows patency of the vessels. Spectral wa veforms are within normal limits. IMPRESSION: 1. No evidence of deep vein thrombosis of the left lower extremity. No significant change from prior. [facility], Workstation: [employer], 05/01/2024 5:49 PM
--- NOTE | 2024-05-01 17:53 | US ---
EXAMINATION TYPE: US extremity nonvasc mass RT DATE OF EXAM: 05/01/2024 COMPARISON: NONE CLINICAL INDICATION: Female, 58 years old with history of soft tissue right lower extremity; Patient states "lump" on right calf TECHNIQUE: Right calf area of concern scanned FINDINGS: No sonographic abnormalities seen at patients area of concern at this time Normal subcutaneous fat and deeper muscle tissue is identified. IMPRESSION: As above. [facility], , 05/01/2024 5:50 PM
[2024-05-01 18:27] VITALS: BP 135/68; PULSE 76; RESP 18; TEMP 98.4
== END 2024-05-01 18:26 | disposition home or self-care (01) ==
LOC: EC 14:30
DX: M66.0 Rupture of popliteal cyst (principal); Z88.8 Allergy status to other drugs, medicaments and biological substances; W19.XXXA Unspecified fall, initial encounter; Y93.01 Activity, walking, marching and hiking
CPT/HCPCS: 73590; 93971; 76882; 99284; 96372; J2360; J1885

== ENCOUNTER 2024-09-03 16:12 | Emergency (ER) | payer MEDICARE, OTHER ==
[2024-09-03 16:20] VITALS: RESP 20
--- NOTE | 2024-09-03 16:37 | ED ---
Back Pain HPI - General Chief Complaint: Back Pain/Injury Stated Complaint: Back Pain Time Seen by Provider: 09/03/24 16:30 Source: patient, RN notes reviewed Mode of arrival: ambulatory Limitations: no limitations - History of Present Illness Initial Comments: This is a 58-year-old female with history including DM, hypertension and hyperlipidemia presenting for back pain (11/17) x 3 days. Patient Dors is pain began after moving a couch with otherwise no acute trauma. Patient states pain worsens with movement and rotation of torso. Patient endorses use of ibuprofen with minimal relief. Denies saddle paresthesia, urinary incontinence/retention, radiculopathy, lower extremity paresthesia. Patient states she traveled by bus to ER. MD Complaint: back pain Onset/Timin -: days(s) Place: home Radiation: none Severity scale (1-10): 8 Consistency: constant Improves With: immobilization Worsens With: movement, walking Associated Symptoms: denies other symptoms Treatments Prior to Arrival: NSAIDS - Related Data Home Medications Medication Instructions Recorded Confirmed busPIRone HCL [Buspar] 30 mg PO BID 10/11/13 05/24/24 Venlafaxine HCl ER [Effexor XR] 150 mg PO DAILY 06/21/14 05/24/24 Lubiprostone [Amitiza] 24 mcg PO BID 01/29/24 05/24/24 QUEtiapine [SEROquel] 200 mg PO HS 01/29/24 05/24/24 Venlafaxine HCl [Effexor XR] 75 mg PO DAILY 01/29/24 05/24/24 lamoTRIgine [LaMICtal] 200 mg PO HS 01/29/24 05/24/24 lisinopriL [Zestril] 20 mg PO DAILY 01/29/24 05/24/24 metFORMIN HCL [metFORMIN HCL ER] 750 mg PO HS 01/29/24 05/24/24 Atorvastatin [Lipitor] 20 mg PO DAILY 05/24/24 05/24/24 Pioglitazone [Actos] 15 mg PO DAILY 05/24/24 05/24/24 Previous Rx's Medication Instructions Recorded Meclizine [Antivert] 25 mg PO QID PRN #30 tab 05/25/24 Cyclobenzaprine [Flexeril] 10 mg PO Q8H PRN #15 tab 09/03/24 Allergies Allergy/AdvReac Type Severity Reaction Status Date / Time benztropine mesylate Allergy Rash/Hives Verified 09/03/24 16:20 [From Art] Review of Systems ROS Statement: Those systems with pertinent positive or pertinent negative responses have been documented in the HPI. ROS Other: All systems not noted in ROS Statement are negative. Past Medical History Past Medical History: Asthma, Diabetes Mellitus, Hyperlipidemia, Hypertension Additional Past Medical History / Comment(s): vertigo History of Any Multi-Drug Resistant Organisms: None Reported Past Surgical History: Orthopedic Surgery Past Anesthesia/Blood Transfusion Reactions: No Reported Reaction Past Psychological History: Anxiety, Bipolar, Depression Smoking Status: Never smoker Past Alcohol Use History: None Reported Past Drug Use History: None Reported - Past Family History Mother Family Medical History: Diabetes Mellitus Father History Unknown: Yes General Exam Limitations: no limitations General appearance: alert, in no apparent distress Head exam: Present: atraumatic, normocephalic, normal inspection Eye exam: Present: normal appearance, PERRL, EOMI. Absent: scleral icterus, conjunctival injection, periorbital swelling ENT exam: Present: normal exam, mucous membranes moist Neck exam: Present: normal inspection. Absent: tenderness, meningismus, lymphadenopathy Respiratory exam: Present: normal lung sounds bilaterally. Absent: respiratory distress, wheezes, rales, rhonchi, stridor Cardiovascular Exam: Present: regular rate, normal rhythm, normal heart sounds. Absent: systolic murmur, diastolic murmur, rubs, gallop, clicks GI/Abdominal exam: Present: soft, normal bowel sounds. Absent: distended, tenderness, guarding, rebound, rigid Extremities exam: Present: normal inspection, full ROM, normal capillary refill. Absent: tenderness, pedal edema, joint swelling, calf tenderness Back exam: Present: normal inspection, tenderness (Diffuse bilateral paraspinal muscle spasm and tenderness across entirety of back), muscle spasm, paraspinal tenderness. Absent: vertebral tenderness Neurological exam: Present: alert, oriented X3, CN II-XII intact Psychiatric exam: Present: normal affect, normal mood Skin exam: Present: warm, dry, intact, normal color. Absent: rash Course Vital Signs 09/03/24 09/03/24 16:17 18:16 Temperature 98.8 F 98.7 F Pulse Rate 98 81 Respiratory 20 20 Rate Blood Pressure 126/77 125/81 O2 Sat by Pulse 98 97 Oximetry Medical Decision Making - Medical Decision Making Was pt. sent in by a medical professional or institution ([facility]ings[facility], RRTS, urgent care, hospital, or longterm...) When possible be specific @ -No Did you speak to anyone other than the patient for history (EMS, parent, family, police, friend...)? What history was obtained from this source @ -No Did you review nursing and triage notes (agree or disagree)? Why? @ -I reviewed and agree with nursing and triage notes Were old charts reviewed (outside hosp., previous admission, EMS record, old EKG, old radiological studies, urgent care reports/EKG's, longterm records)? Report findings @ -No old charts were reviewed Differential Diagnosis (chest pain, altered mental status, abdominal pain women, abdominal pain men, vaginal bleeding, weakness, fever, dyspnea, syncope, headache, dizziness, GI bleed, back pain, seizure, CVA, palpatations, mental health, musculoskeletal)? @ -Differential Back Pain: Strain, zoster, cauda equina syndrome, epidural abscess, vertebral osteomyelitis, discitis, fracture, subluxation, disc herniation, DJD, spinal stenosis, dissection, AAA, pancreatitis, peptic ulcer disease, pyelonephritis, kidney stone, this is not meant to be an all-inclusive list. EKG interpreted by me (3pts min.). @ -Not on X-rays interpreted by me (1pt min.). @ -Spinal x-ray shows no acute fracture or dislocation seen in cervical, thoracic or lumbar spine. CT interpreted by me (1pt min.). @ -None done U/S interpreted by me (1pt. min.). @ -None done What testing was considered but not performed or refused? (CT, X-rays, U/S, labs)? Why? @ -None What meds were considered but not given or refused? Why? @ -None Did you discuss the management of the patient with other professionals (professionals i.e. RICKY Billingsley, RRTS, lab, RT, psych nurse, social media specialist, bulk driver, teacher, accounting officer, supervisor case loading)? Give summary @ -No Was smoking cessation discussed for >3mins.? @ -No Was critical care preformed (if so, how long)? @ -No Were there social determinants of health that impacted care today? How? (Homelessness, low income, unemployed, alcoholism, drug addiction, transportation, low edu. Level, literacy, decrease access to med. care, [place] [facility], rehab)? @ -No Was there de-escalation of care discussed even if they declined (Discuss DNR or withdrawal of care, Hospice)? DNR status @ -No What co-morbidities impacted this encounter? (DM, HTN, Smoking, COPD, CAD, Cancer, CVA, ARF, Chemo, Hep., AIDS, mental health diagnosis, sleep apnea, morbid obesity)? @ -None Was patient admitted / discharged? Hospital course, mention meds given and route, prescriptions, significant lab abnormalities, going to OR and other pertinent info. @ -Spinal x-ray shows no acute fracture or dislocation seen in cervical, thoracic or lumbar spine. Patient provided p.o. [place], IM Norflex and lidocaine patch with pain relief noted by patient. Patient discharged with tramadol starter pack. Flexeril sent to patient's pharmacy. Advised heating pad for 10 minutes up to 4 times daily and Tylenol every 4-6 hours as needed for pain. Also advised gentle massage and stretching of affected areas. Follow-up with [facility]/orthopedics for any ongoing or worsening pain/symptoms. Discussed patient with Dr. Borden. Undiagnosed new problem with uncertain prognosis? @ -No Drug Therapy requiring intensive monitoring for toxicity (Heparin, Nitro, Insulin, Cardizem)? @ -No Were any procedures done? @ -No Diagnosis/symptom? @ -Mechanical back pain, muscle spasm Acute, or Chronic, or Acute on Chronic? @ -Acute Uncomplicated (without systemic symptoms) or Complicated (systemic symptoms)? @ -Uncomplicated Side effects of treatment? @ -No Exacerbation, Progression, or Severe Exacerbation? @ -No Poses a threat to life or bodily function? How? (Chest pain, [place], [place], pneumonia, PE, COPD, DKA, ARF, appy, cholecystitis, CVA, Diverticulitis, Homicidal, Suicidal, threat to staff... and all critical care pts) @ -No Disposition Clinical Impression: Mechanical back pain Disposition: HOME SELF-CARE Condition: Good Instructions (If sedation given, give patient instructions): Acute Low Back Pain (ED) Additional Instructions: Alternate Tylenol/Motrin every 4 hours for pain. Heating pad/warm compress to affected areas on back for 10 minutes up to 4 times daily along with gentle massage and stretching. Follow-up with PCP for any ongoing or worsening pain/symptoms. Prescriptions: Cyclobenzaprine [Flexeril] 10 mg PO Q8H PRN #15 tab PRN Reason: Spasms Is patient prescribed a controlled substance at d/c from ED?: No Referrals: Tia Feliz MD [Primary Care Provider] - 1-2 days Time of Disposition: 17:57
[2024-09-03] MEDS: HYDROcodone/APAP 10-325MG 1 EACH TAB PO ONE (16:46)
[2024-09-03] MEDS: LIDOCAINE 4% PATCH TOPICAL ONE (16:47)
[2024-09-03] MEDS: ORPHENADRINE 30 MG/ML 2 ML VIAL IM STA (16:48)
--- NOTE | 2024-09-03 17:37 | XR ---
EXAMINATION TYPE: XR spine complete AP and Lat DATE OF EXAM: 09/03/2024 5:28 PM COMPARISON: None. CLINICAL INDICATION: Female, 58 years old with history of Diffuse atraumatic back pain, TECHNIQUE: Three views of the cervical spine are submitted. FINDINGS: The cervical spine is visualized in its entirety from C1 thru the top of T1 level. It is s atisfactory in alignment without evidence of acute fracture or dislocation. The pre-vertebral soft t issue appears within normal limits. The C1-C2 articulation is unremarkable on the open mouth view. M oderate degenerative narrowing C4-5 and C5-6 with associated spondylosis. IMPRESSION: No acute fracture or dislocation is seen in the cervical spine. THORACIC SPINE 2 VIEWS. TECHNIQUE: Frontal, lateral, and swimmer's view of thoracic spine are obtained. COMPARISON: None. FINDINGS: Thoracic spine show satisfactory alignment without evidence of acute fracture or dislocatio n. Vertebral body heights are preserved. Mild multilevel degenerative disc space narrowing and mild spondylosis. Visualized ribs are unremarkable. IMPRESSION: No acute fracture or dislocation is seen in the thoracic spine. LUMBAR SPINE X-RAY: TECHNIQUE: Three views of the lumbar spine are submitted. COMPARISON: None. FINDINGS: There are 5 lumbar type vertebral bodies identified. The lumbar spine shows satisfactory alignment without evidence of acute fracture or dislocation. Vertebral body heights are within normal limits. Disc spaces are well preserved. The overlying soft tissue appears unremarkable. IMPRESSION: No acute fracture or dislocation is seen in the lumbar spine. Disc spaces are well pres erved.ICD 10 NO FRACTURE, INITIAL EVALUATION [facility], , 09/03/2024 5:35 PM
[2024-09-03] MEDS: traMADol 50 MG STARTER PACK 3 TAB BTL PO STA (18:12)
[2024-09-03 18:17] VITALS: BP 125/81; PULSE 81; TEMP 98.7
== END 2024-09-03 18:17 | disposition home or self-care (01) ==
LOC: EC 16:12
DX: M62.830 Muscle spasm of back (principal); Z88.8 Allergy status to other drugs, medicaments and biological substances
CPT/HCPCS: 72082; 99284; 96372; J2360